=== PATIENT | male | born 1985 | race Caucasian/White ===

== ENCOUNTER 2016-08-22 18:34 | Inpatient (IN) | payer SELFPAY ==
[~2016-08-22] VITALS: Ht 175.3 cm; Wt 82.1 kg
[2016-08-22 20:04] VITALS: BP 123/79
[2016-08-22] MEDS ORDERED: ONDANSETRON PF 4 MG/2 ML VIAL. IV PRN (20:15)
[2016-08-22] MEDS: MORPHINE SULFATE 2 MG/ML DISP.SYRIN. IV PRN ×2 (20:48→23:34)
[2016-08-22] MEDS: IV RINGERS,LACTATED 1000ML 1,000 ML IV SCH (20:49)
[2016-08-22 23:26] VITALS: BP 109/68
[2016-08-22] MEDS: PIPERACILLIN/TAZOBACTAM 3.375 GM in IV NORMAL SALINE 50ML 50 ML IV SCH (23:34)
[2016-08-23] VITALS (13 sets, daily range): BP systolic 99–126; BP diastolic 53–94
[2016-08-23] MEDS: MORPHINE SULFATE 2 MG/ML DISP.SYRIN. IV PRN ×4 (02:06→09:46)
[2016-08-23] MEDS: IV RINGERS,LACTATED 1000ML 1,000 ML IV SCH ×4 (05:58→23:11)
[2016-08-23] MEDS: PIPERACILLIN/TAZOBACTAM 3.375 GM in IV NORMAL SALINE 50ML 50 ML IV SCH ×3 (05:59→18:32)
[2016-08-23 07:22] LABS: BASO % 0 % (0-3); EOS % 0 % (0-3); HEMATOCRIT 41.9 % (39.0-53.0); HEMOGLOBIN 14.4 g/dL (13.0-17.5); LYMPH # 0.9 x10^3/uL (1.0-4.8); LYMPH % 7 % (24-48); MEAN CORPUSCULAR HEMOGLOBIN 31 pg (25-35); MEAN CORPUSCULAR HGB CONC 34 g/dL (31-37); MEAN CORPUSCULAR VOLUME 90 fL (79-100); MONO % 7 % (0-9); NEUT % 86 % (31-73); PLATELET COUNT 171 x10^3/uL (140-400); RED BLOOD COUNT 4.67 x10^6/uL (4.30-5.70); RED CELL DISTRIBUTION WIDTH 13.9 % (11.5-14.5); WHITE BLOOD COUNT 13.3 x10^3/uL (4.0-11.0)
--- NOTE | 2016-08-23 08:50 | PDOC1 ---
History and Physical Date of Admission Date of Admission DATE: 08/22/16 Identification/Chief Complaint Chief Complaint Abdominal pain Problems: (1) Perforated appendicitis Source Source: Patient History of Present Illness History of Present Illness 31 yo M with c/o epigastric pain beginning on 08/19, mild. Described as indigestion. However, progressed to diffuse abd pain. Developed some relief on 08/21, but then worsened to diffuse abd pain. No F/C, no bowel changes. Positive anorexia. No previous episodes. Accompanied by supportive . Past Medical History Cardiovascular: No pertinent hx Past Surgical History Past Surgical History: Other (none) Family History Family History: Other (denies inheritable disease) Social History Smoke: 1 pack per day (encouraged smoking cessation) ALCOHOL: occassional (encourage min consumption) Current Problem List Problems: (1) Perforated appendicitis Current Medications Current Medications Current Medications Ringer's Solution 1,000 ml @ 100 mls/hr Q10H IV Last administered on 08/23/16 05:58; Start 08/22/16 at 20:09 Ondansetron HCl (Zofran) 4 mg PRN Q6HRS PRN IV NAUSEA/VOMITING; Start 08/22/16 at 20:15 Morphine Sulfate 1 mg PRN Q1HR PRN IV PAIN Last administered on 08/22/16 23:34 ; Start 08/22/16 at 20:15 Piperacillin Sod/ Tazobactam Sod 3.375 gm/Sodium Chloride 50 ml @ 100 mls/hr Q6HRS IV Last administered on 08/23/16 05:59; Start 08/23/16 at 00:00 Morphine Sulfate 2 mg PRN Q1HR PRN IV PAIN Last administered on 08/23/16 08:16 ; Start 08/22/16 at 23:45 Allergies Allergies: Coded Allergies: No Known Drug Allergies (Unverified , 08/22/16) ROS Gastrointestinal: Yes Abdominal Pain Physical Exam General: Alert, Oriented X3, Cooperative, moderate distress HEENT: Atraumatic, EOMI, Mucous membr. moist/pink Lungs: Normal air movement Abdomen: Other (diffuse TTP with involuntary guarding, no masses, no hernias) Rectal Exam: not examined Extremities: No clubbing, No cyanosis, No edema Skin: No rashes, No breakdown, Other (diffuse tattooing) Psych/Mental Status: Mental status NL, Mood NL Vitals Vitals Vital Signs Date Time Temp Pulse Resp B/P (MAP) Pulse Ox O2 Delivery O2 Flow Rate FiO2 08/23/16 08:16 Room Air 08/23/16 07:00 97.7 82 20 102/65 (77) 95 97.7 Labs Labs Laboratory Tests Test 08/23/16 06:45 White Blood Count 13.3 x10^3/uL (4.0-11.0) Red Blood Count 4.67 x10^6/uL (4.30-5.70) Hemoglobin 14.4 g/dL (13.0-17.5) Hematocrit 41.9 % (39.0-53.0) Mean Corpuscular Volume 90 fL (79-100) Mean Corpuscular Hemoglobin 31 pg (25-35) Mean Corpuscular Hemoglobin Concent 34 g/dL (31-37) Red Cell Distribution Width 13.9 % (11.5-14.5) Platelet Count 171 x10^3/uL (140-400) Neutrophils (%) (Auto) 86 % (31-73) Lymphocytes (%) (Auto) 7 % (24-48) Monocytes (%) (Auto) 7 % (0-9) Eosinophils (%) (Auto) 0 % (0-3) Basophils (%) (Auto) 0 % (0-3) Neutrophils # (Auto) 11.4 x10^3uL (1.8-7.7) Lymphocytes # (Auto) 0.9 x10^3/uL (1.0-4.8) Monocytes # (Auto) 0.9 x10^3/uL (0.0-1.1) Eosinophils # (Auto) 0.0 x10^3/uL (0.0-0.7) Basophils # (Auto) 0.0 x10^3/uL (0.0-0.2) Laboratory Tests Test 08/23/16 06:45 White Blood Count 13.3 x10^3/uL (4.0-11.0) Red Blood Count 4.67 x10^6/uL (4.30-5.70) Hemoglobin 14.4 g/dL (13.0-17.5) Hematocrit 41.9 % (39.0-53.0) Mean Corpuscular Volume 90 fL (79-100) Mean Corpuscular Hemoglobin 31 pg (25-35) Mean Corpuscular Hemoglobin Concent 34 g/dL (31-37) Red Cell Distribution Width 13.9 % (11.5-14.5) Platelet Count 171 x10^3/uL (140-400) Neutrophils (%) (Auto) 86 % (31-73) Lymphocytes (%) (Auto) 7 % (24-48) Monocytes (%) (Auto) 7 % (0-9) Eosinophils (%) (Auto) 0 % (0-3) Basophils (%) (Auto) 0 % (0-3) Neutrophils # (Auto) 11.4 x10^3uL (1.8-7.7) Lymphocytes # (Auto) 0.9 x10^3/uL (1.0-4.8) Monocytes # (Auto) 0.9 x10^3/uL (0.0-1.1) Eosinophils # (Auto) 0.0 x10^3/uL (0.0-0.7) Basophils # (Auto) 0.0 x10^3/uL (0.0-0.2) Images Images CT at [facility] [place] c/w perforated appendicitis VTE Prophylaxis Ordered VTE Prophylaxis Devices: Yes VTE Pharmacological Prophylaxi: No Assessment/Plan Assessment/Plan perforated appendicitis IV abx started some clinical improvement, but persistent diffuse pain. WBC elevated. Given persistent pain, favor proceeding with laparoscopic versus open appendectomy. R/B/A d/w pt and pt's . Significant risk of perioperative complication/infection given perforation They appear to understand and agree to proceed. DOTTIE BELL MD Aug 23, 2016 08:50
[2016-08-23 09:41] LABS: % EOS 1 % (0-5); PLT ESTIMATE ADEQUATE (ADEQUATE)
[2016-08-23] MEDS ORDERED: SEVOFLURANE 31 TO 60 MINUTES. IH ONE (10:15)
[2016-08-23] MEDS ORDERED: SUCCINYLCHOLINE 200 MG/10 ML VIAL. ONE (10:16)
[2016-08-23] MEDS ORDERED: fentaNYL PF VIAL 100 MCG/2 ML VIAL ONE ×3 (10:16→12:24)
[2016-08-23] MEDS ORDERED: GLYCOPYRROLATE 1 MG/5 ML VIAL. ONE (10:16)
[2016-08-23] MEDS ORDERED: NEOSTIGMINE METHYLSULFATE 5 MG/5 ML SYRINGE. ONE (10:16)
[2016-08-23] MEDS ORDERED: MIDAZOLAM HCL/PF 2 MG/2 ML VIAL. ONE (10:16)
[2016-08-23] MEDS ORDERED: ROCURONIUM 50 MG/5 ML VIAL. ONE (10:17)
[2016-08-23] MEDS ORDERED: LIDOCAINE 2% PF Vial for OR 5 ML VIAL. ONE (10:18)
[2016-08-23] MEDS ORDERED: DEXAMETHASONE SOD PHOS 20 MG/5 ML VIAL. ONE (10:18)
[2016-08-23] MEDS ORDERED: ONDANSETRON PF 4 MG/2 ML VIAL. ONE (10:18)
[2016-08-23] MEDS ORDERED: PROPOFOL 20 ML IV ONE (10:18)
[2016-08-23] MEDS ORDERED: BUPIVACAINE-EPI 0.5%-1:200000 50 ML VIAL. ONE (10:23)
[2016-08-23] MEDS ORDERED: fentaNYL PF VIAL 100 MCG/2 ML VIAL IV ONE (11:15)
[2016-08-23] MEDS ORDERED: PROCHLORPERAZINE 10 MG/2 ML VIAL. ONE (12:51)
[2016-08-23] MEDS ORDERED: IV RINGERS,LACTATED 1000ML 1,000 ML IV SCH (12:57)
[2016-08-23] MEDS ORDERED: fentaNYL PF VIAL 100 MCG/2 ML VIAL IV PRN (13:00)
[2016-08-23] MEDS ORDERED: PROCHLORPERAZINE 10 MG/2 ML VIAL. IV PRN (13:00)
[2016-08-23] MEDS ORDERED: LIDOCAINE 1% 1 ML SYRINGE. ID PRN (13:00)
[2016-08-23] MEDS ORDERED: HYDROmorphone 2 MG/ML VIAL IV PRN (13:00)
[2016-08-23] MEDS ORDERED: 0.9 % SODIUM CHLORIDE 10 ML DISP.SYRIN. IV PRN (13:00)
[2016-08-23] MEDS ORDERED: ONDANSETRON PF 4 MG/2 ML VIAL. IV PRN (13:00)
[2016-08-23] MEDS ORDERED: MORPHINE SULFATE 2 MG/ML DISP.SYRIN. IV PRN ×2 (13:00)
[2016-08-23] MEDS ORDERED: KETOROLAC TROMETHAMINE 30 MG/ML INJ. ONE (13:04)
[2016-08-23] MEDS: KETOROLAC TROMETHAMINE 30 MG/ML INJ. IV PRN (13:07)
--- NOTE | 2016-08-23 13:10 | PDOC ---
BRIEF OPERATIVE NOTE Pre-Op Diagnosis Perforated appendicitis Post-Op Diagnosis same Procedure Performed Laparoscopic appendectomy Surgeon Laci Bell Anesthesia Type: General, Local Blood Loss 20 Specimens Obtained appendix Findings diffuse peritonitis, indurated, appendix, perforated, infected Complications none Additional Remarks After obtaining informed consent, patient was taken to the OR and induced under GETA. Patient was prepped and draped in the usual fashion over the abdomen. 0.5% Marcaine was injected in the left abdomen. 15 blade scapel was used to make and incision. 5 mm non bladed trocar was introduced under laparoscopic guidance. Pneumoperitoneum was thus established. Additional 12 port was placed suprumbelical, and another 5 port was placed suprapubic. The abdominal cavity was explored. There was diffuse peritonitis and purulent ascites, c/w perforation. There was no obvious feculent peritonitis. The appendix was identified coming off the confluence of the teania at the base of the cecum. A defect was created at the mesoappendix and a general DEDE was taken across the base of the appendix and a vascular load was taken across the mesoappendix. Additional hemostasis was obtained on the mesoappendix using clips. The appendix had been bluntly dissected off the surrounding viscera. It was placed in a an Endocatch bag and brought out and sent to pathology. The abdominal cavity was copiously irrigated with 5 liters of fluid. The was no evidence of pathology at the time of closure. All ports were removed under laparoscopic guidance. There was no evidence of bleeding. The fascia defect at the umbelicus was reapproximated with 0 vicryl stitch and all skin incisions were reapproximated with 4-0 monocryl. Sterile dressings were placed over all wounds. Patient tolerated procedure well and sent to PACU in a stable condition. All counts were correct. There were no immediate complications. Wound class is 4 (infected/dirty). LACI BELL MD Aug 23, 2016 13:10
[2016-08-23] MEDS: fentaNYL PF VIAL 100 MCG/2 ML VIAL IV PRN ×2 (13:12→13:49)
[2016-08-23] MEDS: DOCUSATE SODIUM 100 MG CAPSULE. PO SCH ×2 (13:30→22:23)
[2016-08-23 14:35] LABS: ALBUMIN 3.4 g/dL (3.4-5.0); ALBUMIN/GLOBULIN RATIO 1.3 (1.0-1.7); CALCIUM 8.6 mg/dL (8.5-10.1); CREATININE 0.9 mg/dL (0.7-1.3); GFR 97.2; TOTAL BILIRUBIN 3.2 mg/dL (0.2-1.0); TOTAL PROTEIN 6.1 g/dL (6.4-8.2)
[2016-08-23] MEDS ORDERED: PANTOPRAZOLE 40 MG TABLET.DR. PO ONE (23:00)
[2016-08-23] MEDS: HYDROcodone/APAP 5/325MG 1 TAB TABLET PO PRN (23:02)
[2016-08-24] MEDS: PIPERACILLIN/TAZOBACTAM 3.375 GM in IV NORMAL SALINE 50ML 50 ML IV SCH ×4 (00:27→18:39)
[2016-08-24 03:00] VITALS: BP 111/80
[2016-08-24] MEDS: IV RINGERS,LACTATED 1000ML 1,000 ML IV SCH ×4 (03:05→22:01)
--- NOTE | 2016-08-24 03:48 | ACF ---
Admission Forms Criteria ABDOMINAL PAIN Clinical Indications for Admission to Inpatient Care (Place 'X' for any and all applicable criteria): Admission is indicated for ANY ONE of the following(1)(2)(3)(4)(5): [ x]I. Inpatient admission required rather than observation care (Also use Abdominal Pain: Observation Care, as appropriate) because of ANY ONE of the following: [x ]a) Severe pain requiring acute inpatient management [ ]b) Identification of etiology/finding that requires inpatient care (eg, aortic dissection, free air) [ ]c) Absent bowel sounds with complete ileus(6) [ ]d) Suspected toxic megacolon [ ]e) Severe electrolyte abnormalities requiring inpatient care [ ]f) High fever or infection requiring inpatient admission as indicated by ANY ONE of following(7)(8): [ ] i) Appropriate outpatient or observational care antimicrobial treatment unavailable, not effective, or not feasible [ ] ii) Documented bacteremia [ ] iii) Temperature > 104.9 degrees F (oral) [ ] iv) T >103.1 F (oral) or < 96.8 F(rectal) that does not respond to all emergency treatment measures [ ]g) Signs of intestinal obstruction [B] [ ]h) Hemodynamic instability [ ]i) IV fluid to replace significant ongoing losses (greater than 3 L/m2 per day) (12)(13) [ ]j) Percutaneous or open drainage (eg, abscess, biliary tract ) procedures [ ]k) Parenteral nutrition regimen that must be implemented on inpatient basis [ ]l) Other condition,treatment or monitoring requiring inpatient admission. [x ]II. Peritoneal signs present [X]III. Surgery needed that cannot be performed on an ambulatory basis. [ ]IV. Evaluation requires patient to not eat or drink for extended period ( eg, more than 24 hours). [ ]V. Contraindications and/or Inappropriate clinical situations for Observational Care in patients with abdominal pain, when ANY ONE of the following is required: [ ]a) Thorough evaluation is required to prevent catastrophic events due to delays in diagnosing (e.g.Mesenteric ischemia) 1,3 [ ]b) Patient with severe pathology or with chronic symptoms unlikely to improve in the ED stay (3) [ ]. General contraindications and/or Inappropriate clinical situations for Observational Care in patients with abdominal pain, when ANY ONE of the following is required: [ ]a) Prediction of prolongation of LOS based on ANY ONE of the following may be considered as a contraindication for observational care 2, 3, 4, 5, 6, 7, 8, 9, 10, 11 [ ]i) Age > 65 yrs. [ ]ii) Patient arriving by ambulance [ ]iii) Patient with high acuity [ ]iv) Patient requiring vital sign monitoring [ ]v) Patient on IV medication [ ]b) Systolic blood pressures 180mmHg 3,12 [ ]c) Patient with altered mental status including delirium and other alteration of consciousness, (3) [ ]d) Patient whose discharge disposition will be to a long-term home or rehabilitation home should not be managed in Emergency Department Observation Unit. CMS rule requires 3 days hospital stay before such placement.3,13 [ ]e) Patient with failure to thrive due to broad array of etiologies 3,16,17 [ ]f) Inability to ambulate 3,14 Extended stay beyond goal length of stay may be needed for(2)(3): [x ]a) Persistent abdominal pain with suspected intra-abdominal process [ ]b) Diagnosed condition requiring continued stay (e.g., pancreatitis, complicated diverticulitis) [ ]c) Surgery (e.g., colectomy) The original [employer] content created by [employer] has been revised. The portions of the content which have been revised are identified through the use of italic text or in bold, and [facility] has neither reviewed nor approved the modified material.All other unmodified content is copyright [employer] [facility]. Please see references footnoted in the original [employer] [facility] edition 2016 Admission Criteria Met?: Yes ELVIRA JULIAN Aug 24, 2016 03:48 DOTTIE BELL MD Aug 24, 2016 06:35
[2016-08-24 04:34] LABS: BASO % 0 % (0-3); EOS % 0 % (0-3); HEMATOCRIT 37.8 % (39.0-53.0); HEMOGLOBIN 12.8 g/dL (13.0-17.5); LYMPH # 0.6 x10^3/uL (1.0-4.8); LYMPH % 5 % (24-48); MEAN CORPUSCULAR HEMOGLOBIN 30 pg (25-35); MEAN CORPUSCULAR HGB CONC 34 g/dL (31-37); MEAN CORPUSCULAR VOLUME 90 fL (79-100); MONO % 7 % (0-9); NEUT % 88 % (31-73); PLATELET COUNT 167 x10^3/uL (140-400); RED BLOOD COUNT 4.19 x10^6/uL (4.30-5.70); WHITE BLOOD COUNT 13.6 x10^3/uL (4.0-11.0)
[2016-08-24 05:18] LABS: CALCIUM 8.8 mg/dL (8.5-10.1); CREATININE 0.9 mg/dL (0.7-1.3); GFR 97.2; POTASSIUM 3.9 mmol/L (3.5-5.1)
[2016-08-24] MEDS: MORPHINE SULFATE 2 MG/ML DISP.SYRIN. IV PRN ×3 (05:38→12:37)
[2016-08-24] MEDS ORDERED: PANTOPRAZOLE 40 MG TABLET.DR. PO SCH (06:30)
[2016-08-24 07:00] VITALS: BP 105/69
[2016-08-24] MEDS: DOCUSATE SODIUM 100 MG CAPSULE. PO SCH ×2 (08:25→21:00)
--- NOTE | 2016-08-24 08:25 | PDOC ---
SURGICAL PROGRESS NOTE Subjective Pt with c/o N/V yesterday and this AM, pain much improved, no flatus Vital Signs Vital Signs Date Time Temp Pulse Resp B/P (MAP) Pulse Ox O2 Delivery O2 Flow Rate FiO2 08/24/16 07:15 Room Air 08/24/16 07:00 98.4 73 18 105/69 (81) 96 98.4 08/23/16 18:00 2.0 I&O Intake and Output 08/24/16 07:00 Intake Total 2399 ml Output Total 95 ml Balance 2304 ml IV Total 2399 ml Output Urine Total 85 ml Estimated Blood Loss 10 ml # Voids 5 General: Alert, Oriented X3, Cooperative, mild distress Abdomen: Soft, Other (distended, mild TTP, dressing c/d/i) Labs Laboratory Tests Test 08/23/16 06:45 08/24/16 04:20 White Blood Count 13.3 x10^3/uL (4.0-11.0) 13.6 x10^3/uL (4.0-11.0) Red Blood Count 4.67 x10^6/uL (4.30-5.70) 4.19 x10^6/uL (4.30-5.70) Hemoglobin 14.4 g/dL (13.0-17.5) 12.8 g/dL (13.0-17.5) Hematocrit 41.9 % (39.0-53.0) 37.8 % (39.0-53.0) Mean Corpuscular Volume 90 fL (79-100) 90 fL (79-100) Mean Corpuscular Hemoglobin 31 pg (25-35) 30 pg (25-35) Mean Corpuscular Hemoglobin Concent 34 g/dL (31-37) 34 g/dL (31-37) Red Cell Distribution Width 13.9 % (11.5-14.5) 14.0 % (11.5-14.5) Platelet Count 171 x10^3/uL (140-400) 167 x10^3/uL (140-400) Neutrophils (%) (Auto) 86 % (31-73) 88 % (31-73) Lymphocytes (%) (Auto) 7 % (24-48) 5 % (24-48) Monocytes (%) (Auto) 7 % (0-9) 7 % (0-9) Eosinophils (%) (Auto) 0 % (0-3) 0 % (0-3) Basophils (%) (Auto) 0 % (0-3) 0 % (0-3) Neutrophils # (Auto) 11.4 x10^3uL (1.8-7.7) 12.0 x10^3uL (1.8-7.7) Lymphocytes # (Auto) 0.9 x10^3/uL (1.0-4.8) 0.6 x10^3/uL (1.0-4.8) Monocytes # (Auto) 0.9 x10^3/uL (0.0-1.1) 0.9 x10^3/uL (0.0-1.1) Eosinophils # (Auto) 0.0 x10^3/uL (0.0-0.7) 0.0 x10^3/uL (0.0-0.7) Basophils # (Auto) 0.0 x10^3/uL (0.0-0.2) 0.0 x10^3/uL (0.0-0.2) Segmented Neutrophils % 83 % (35-66) Band Neutrophils % 1 % (0-9) Lymphocytes % 12 % (24-48) Monocytes % 3 % (0-10) Eosinophils % 1 % (0-5) Platelet Estimate Adequate (ADEQUATE) Sodium Level 142 mmol/L (136-145) 137 mmol/L (136-145) Potassium Level 4.0 mmol/L (3.5-5.1) 3.9 mmol/L (3.5-5.1) Chloride Level 104 mmol/L (98-107) 101 mmol/L (98-107) Carbon Dioxide Level 25 mmol/L (21-32) 27 mmol/L (21-32) Anion Gap 13 (6-14) 9 (6-14) Blood Urea Nitrogen 15 mg/dL (8-26) 19 mg/dL (8-26) Creatinine 0.9 mg/dL (0.7-1.3) 0.9 mg/dL (0.7-1.3) Estimated GFR (Cockcroft-Gault) 97.2 97.2 BUN/Creatinine Ratio 17 (6-20) Glucose Level 100 mg/dL (70-99) 128 mg/dL (70-99) Calcium Level 8.6 mg/dL (8.5-10.1) 8.8 mg/dL (8.5-10.1) Total Bilirubin 3.2 mg/dL (0.2-1.0) Aspartate Amino Transf (AST/SGOT) 12 U/L (15-37) Alanine Aminotransferase (ALT/SGPT) 16 U/L (16-63) Alkaline Phosphatase 52 U/L (46-116) Total Protein 6.1 g/dL (6.4-8.2) Albumin 3.4 g/dL (3.4-5.0) Albumin/Globulin Ratio 1.3 (1.0-1.7) Laboratory Tests Test 08/24/16 04:20 White Blood Count 13.6 x10^3/uL (4.0-11.0) Red Blood Count 4.19 x10^6/uL (4.30-5.70) Hemoglobin 12.8 g/dL (13.0-17.5) Hematocrit 37.8 % (39.0-53.0) Mean Corpuscular Volume 90 fL (79-100) Mean Corpuscular Hemoglobin 30 pg (25-35) Mean Corpuscular Hemoglobin Concent 34 g/dL (31-37) Red Cell Distribution Width 14.0 % (11.5-14.5) Platelet Count 167 x10^3/uL (140-400) Neutrophils (%) (Auto) 88 % (31-73) Lymphocytes (%) (Auto) 5 % (24-48) Monocytes (%) (Auto) 7 % (0-9) Eosinophils (%) (Auto) 0 % (0-3) Basophils (%) (Auto) 0 % (0-3) Neutrophils # (Auto) 12.0 x10^3uL (1.8-7.7) Lymphocytes # (Auto) 0.6 x10^3/uL (1.0-4.8) Monocytes # (Auto) 0.9 x10^3/uL (0.0-1.1) Eosinophils # (Auto) 0.0 x10^3/uL (0.0-0.7) Basophils # (Auto) 0.0 x10^3/uL (0.0-0.2) Sodium Level 137 mmol/L (136-145) Potassium Level 3.9 mmol/L (3.5-5.1) Chloride Level 101 mmol/L (98-107) Carbon Dioxide Level 27 mmol/L (21-32) Anion Gap 9 (6-14) Blood Urea Nitrogen 19 mg/dL (8-26) Creatinine 0.9 mg/dL (0.7-1.3) Estimated GFR (Cockcroft-Gault) 97.2 Glucose Level 128 mg/dL (70-99) Calcium Level 8.8 mg/dL (8.5-10.1) Assessment/Plan s/p lap appendectomy cont abx for extensive perforated appendicitis high suspicion for development of abscess, will tentatively plan CT POD #3, if pt not improved by then check labs in AM Problems: DOTTIE BELL MD Aug 24, 2016 08:25
[2016-08-24] MEDS: HYDROcodone/APAP 5/325MG 1 TAB TABLET PO PRN (08:27)
[2016-08-24] MEDS: ONDANSETRON PF 4 MG/2 ML VIAL. IV PRN (10:22)
[2016-08-24 11:16] VITALS: BP 119/85
[2016-08-24] MEDS: METOCLOPRAMIDE HCL 10 MG/2 ML VIAL. IV PRN (12:37)
[2016-08-24 15:40] VITALS: BP 118/80
[2016-08-24] MEDS: KETOROLAC TROMETHAMINE 30 MG/ML INJ. IV PRN ×2 (16:10→19:35)
[2016-08-24 19:25] VITALS: BP 112/74
[2016-08-24 23:12] VITALS: BP 114/73
[2016-08-25] MEDS: MORPHINE SULFATE 2 MG/ML DISP.SYRIN. IV PRN (00:53)
[2016-08-25] MEDS: PIPERACILLIN/TAZOBACTAM 3.375 GM in IV NORMAL SALINE 50ML 50 ML IV SCH ×4 (00:57→17:24)
[2016-08-25] MEDS: ONDANSETRON PF 4 MG/2 ML VIAL. IV PRN ×2 (01:16→10:56)
[2016-08-25 02:57] VITALS: BP 119/74
[2016-08-25] MEDS: KETOROLAC TROMETHAMINE 30 MG/ML INJ. IV PRN ×3 (05:17→17:22)
[2016-08-25] MEDS: METOCLOPRAMIDE HCL 10 MG/2 ML VIAL. IV PRN ×3 (05:17→17:23)
[2016-08-25] MEDS: PANTOPRAZOLE 40 MG TABLET.DR. PO SCH ×2 (06:30→07:30)
[2016-08-25 07:00] VITALS: BP 122/82
[2016-08-25] MEDS ORDERED: PANTOPRAZOLE 40 MG TABLET.DR. PO SCH (07:30)
--- NOTE | 2016-08-25 08:25 | PDOC ---
SURGICAL PROGRESS NOTE Subjective Pt feels much better today, less n/V, passing flatus, Vital Signs Vital Signs Date Time Temp Pulse Resp B/P (MAP) Pulse Ox O2 Delivery O2 Flow Rate FiO2 08/25/16 02:57 98.3 71 18 119/74 (89) 93 Room Air 98.3 I&O Intake and Output 08/25/16 07:00 Intake Total 50 ml Output Total 285 ml Balance -235 ml Intake Oral 0 ml IV Total 50 ml Gastric Drainage Total 25 ml Emesis 230 ml Drainage Total 30 ml # Voids 3 General: Alert, Oriented X3, Cooperative, No acute distress Abdomen: Soft, No tenderness, Other (mild distention, dressing c/d/i) Labs Laboratory Tests Test 08/24/16 04:20 White Blood Count 13.6 x10^3/uL (4.0-11.0) Red Blood Count 4.19 x10^6/uL (4.30-5.70) Hemoglobin 12.8 g/dL (13.0-17.5) Hematocrit 37.8 % (39.0-53.0) Mean Corpuscular Volume 90 fL (79-100) Mean Corpuscular Hemoglobin 30 pg (25-35) Mean Corpuscular Hemoglobin Concent 34 g/dL (31-37) Red Cell Distribution Width 14.0 % (11.5-14.5) Platelet Count 167 x10^3/uL (140-400) Neutrophils (%) (Auto) 88 % (31-73) Lymphocytes (%) (Auto) 5 % (24-48) Monocytes (%) (Auto) 7 % (0-9) Eosinophils (%) (Auto) 0 % (0-3) Basophils (%) (Auto) 0 % (0-3) Neutrophils # (Auto) 12.0 x10^3uL (1.8-7.7) Lymphocytes # (Auto) 0.6 x10^3/uL (1.0-4.8) Monocytes # (Auto) 0.9 x10^3/uL (0.0-1.1) Eosinophils # (Auto) 0.0 x10^3/uL (0.0-0.7) Basophils # (Auto) 0.0 x10^3/uL (0.0-0.2) Sodium Level 137 mmol/L (136-145) Potassium Level 3.9 mmol/L (3.5-5.1) Chloride Level 101 mmol/L (98-107) Carbon Dioxide Level 27 mmol/L (21-32) Anion Gap 9 (6-14) Blood Urea Nitrogen 19 mg/dL (8-26) Creatinine 0.9 mg/dL (0.7-1.3) Estimated GFR (Cockcroft-Gault) 97.2 Glucose Level 128 mg/dL (70-99) Calcium Level 8.8 mg/dL (8.5-10.1) Problem List s/p lap appendectomy improved try clears encourage OOB encourage smoking cessation d/w pt's mother check CBC in AM, consider CT avoid morphine, may be trigger for n/V Problems: DOTTIE BELL MD Aug 25, 2016 08:25
[2016-08-25 08:35] LABS: BASO % 0 % (0-3); EOS % 0 % (0-3); HEMOGLOBIN 12.8 g/dL (13.0-17.5); LYMPH # 0.5 x10^3/uL (1.0-4.8); LYMPH % 5 % (24-48); MEAN CORPUSCULAR HEMOGLOBIN 31 pg (25-35); MEAN CORPUSCULAR HGB CONC 35 g/dL (31-37); MEAN CORPUSCULAR VOLUME 89 fL (79-100); MONO % 7 % (0-9); NEUT % 88 % (31-73); PLATELET COUNT 193 x10^3/uL (140-400); RED BLOOD COUNT 4.16 x10^6/uL (4.30-5.70); RED CELL DISTRIBUTION WIDTH 13.8 % (11.5-14.5); WHITE BLOOD COUNT 11.5 x10^3/uL (4.0-11.0)
[2016-08-25 08:52] LABS: ALBUMIN 2.9 g/dL (3.4-5.0); ALBUMIN/GLOBULIN RATIO 0.8 (1.0-1.7); CALCIUM 8.4 mg/dL (8.5-10.1); GFR 86.1; POTASSIUM 3.8 mmol/L (3.5-5.1); TOTAL BILIRUBIN 2.3 mg/dL (0.2-1.0); TOTAL PROTEIN 6.5 g/dL (6.4-8.2)
[2016-08-25] MEDS: DOCUSATE SODIUM 100 MG CAPSULE. PO SCH ×2 (09:00→21:00)
[2016-08-25 11:00] VITALS: BP 133/77
[2016-08-25] MEDS: IV RINGERS,LACTATED 1000ML 1,000 ML IV SCH ×2 (11:50→23:16)
[2016-08-25] MEDS: PROCHLORPERAZINE 10 MG/2 ML VIAL. IV PRN (11:54)
[2016-08-25] MEDS: FAMOTIDINE 20 MG/2 ML VIAL IVP SCH ×2 (13:55→23:16)
[2016-08-25] MEDS: fentaNYL PF VIAL 100 MCG/2 ML VIAL IV PRN ×3 (13:55→19:59)
[2016-08-25] MEDS ORDERED: CONTRAST GIVEN MC PRN (14:30)
[2016-08-25] MEDS ORDERED: IOHEXOL 300 MG/ML 75 ML VIAL IV ONE (14:30)
[2016-08-25 15:24] VITALS: BP 128/84
--- NOTE | 2016-08-25 15:28 | RAD ---
CT of the abdomen and pelvis with contrast, 08/25/2016: History: Nausea and vomiting Multidetector CT imaging was performed following an IV bolus injection of iodinated contrast material. No oral contrast material was administered for this exam. There is a small amount of bilateral pleural fluid. There is moderate underlying atelectasis/infiltrate posteriorly in both lower lobes. A component of pneumonia cannot be excluded. The liver is unremarkable. No gallbladder abnormality is seen. The pancreas shows no abnormality. The spleen is of normal size. The kidneys are unremarkable. The stomach is distended with fluid and gas. The duodenum and small bowel are both moderately distended with fluid and gas. No nondilated small bowel is seen. The colon is not dilated. It contains a small amount of gas and scattered collections of stool. The pattern suggests small bowel obstruction near the ileocecal level. There is only a small amount of free fluid in the pelvis. Mild streaky subcutaneous gas collections are present anteriorly on the left. These are likely on a postsurgical basis. IMPRESSION: 1. Moderate distention of the stomach and the entire small bowel suggesting small bowel obstruction near the ileocecal level versus a severe small bowel ileus. 2. Small bilateral pleural effusions with moderate bibasilar atelectasis/infiltrate. 3. Small amount of subcutaneous gas in the anterior abdominal wall on the left, likely on a postsurgical basis. PQRS Compliance Statement: One or more of the following individualized dose reduction techniques were utilized for this examination: 1. Automated exposure control 2. Adjustment of the mA and/or kV according to patient size 3. Use of iterative reconstruction technique
--- NOTE | 2016-08-25 18:08 | RAD ---
Indication: NG tube placement. Time of exam 5:54 PM NG tube passes below the diaphragm but is coiled upon itself and directed retrograde just beyond the GE junction. This should be advanced. There is significant gaseous distention of bowel loops throughout the upper abdomen. IMPRESSION: NG tube, as described. This should be advanced and repeat study can be performed. Electronically signed by: Laci Tan MD (08/25/2016 6:05 PM) [facility]
[2016-08-25 19:20] VITALS: BP 118/81
--- NOTE | 2016-08-25 20:34 | RAD ---
Indication: NG tube repositioned. Time of exam 8:21 PM Correlation is made with prior study from earlier the same evening. The NG tube has been advanced. The NG tube is no longer coiled upon itself. The NG tube is directed towards the left located in the gastric body. Significant gaseous distention of small bowel loops in the abdomen are noted. IMPRESSION: Satisfactory repositioning of the nasogastric tube. Electronically signed by: Laci Tan MD (08/25/2016 8:29 PM) [facility]
[2016-08-25 23:15] VITALS: BP 119/75
[2016-08-26] MEDS: PIPERACILLIN/TAZOBACTAM 3.375 GM in IV NORMAL SALINE 50ML 50 ML IV SCH ×4 (00:33→17:43)
[2016-08-26] MEDS: fentaNYL PF VIAL 100 MCG/2 ML VIAL IV PRN ×3 (00:38→17:50)
[2016-08-26 03:02] VITALS: BP 81/58
[2016-08-26] MEDS ORDERED: PHENOL ORAL SPRAY 177ML BOTTLE. PO PRN (03:15)
[2016-08-26 05:05] LABS: BASO % 0 % (0-3); EOS % 1 % (0-3); HEMATOCRIT 35.3 % (39.0-53.0); LYMPH # 0.8 x10^3/uL (1.0-4.8); LYMPH % 10 % (24-48); MEAN CORPUSCULAR HEMOGLOBIN 31 pg (25-35); MEAN CORPUSCULAR HGB CONC 34 g/dL (31-37); MEAN CORPUSCULAR VOLUME 91 fL (79-100); MONO % 11 % (0-9); NEUT % 79 % (31-73); PLATELET COUNT 176 x10^3/uL (140-400); RED BLOOD COUNT 3.89 x10^6/uL (4.30-5.70); WHITE BLOOD COUNT 7.8 x10^3/uL (4.0-11.0)
[2016-08-26 07:00] VITALS: BP 121/60
[2016-08-26] MEDS: DOCUSATE SODIUM 100 MG CAPSULE. PO SCH ×2 (07:54→21:00)
[2016-08-26] MEDS: FAMOTIDINE 20 MG/2 ML VIAL IVP SCH ×2 (08:41→22:03)
[2016-08-26 11:00] VITALS: BP 126/72
--- NOTE | 2016-08-26 11:03 | PDOC ---
SURGICAL PROGRESS NOTE Subjective Pt feels better, no N/V since NGT placed, passing flatus and stool, thirsty Vital Signs Vital Signs Date Time Temp Pulse Resp B/P (MAP) Pulse Ox O2 Delivery O2 Flow Rate FiO2 08/26/16 07:00 98.6 80 16 121/60 (80) 95 Room Air 98.6 08/25/16 20:00 2.0 I&O Intake and Output 08/26/16 06:59 Intake Total 1250 ml Output Total 450 ml Balance 800 ml IV Total 1250 ml Output Urine Total 0 ml Emesis 450 ml # Voids 6 General: Alert, Oriented X3, Cooperative, No acute distress Abdomen: Soft, No tenderness Labs Laboratory Tests Test 08/25/16 08:27 08/26/16 04:40 White Blood Count 11.5 x10^3/uL (4.0-11.0) 7.8 x10^3/uL (4.0-11.0) Red Blood Count 4.16 x10^6/uL (4.30-5.70) 3.89 x10^6/uL (4.30-5.70) Hemoglobin 12.8 g/dL (13.0-17.5) 12.0 g/dL (13.0-17.5) Hematocrit 37.0 % (39.0-53.0) 35.3 % (39.0-53.0) Mean Corpuscular Volume 89 fL (79-100) 91 fL (79-100) Mean Corpuscular Hemoglobin 31 pg (25-35) 31 pg (25-35) Mean Corpuscular Hemoglobin Concent 35 g/dL (31-37) 34 g/dL (31-37) Red Cell Distribution Width 13.8 % (11.5-14.5) 14.0 % (11.5-14.5) Platelet Count 193 x10^3/uL (140-400) 176 x10^3/uL (140-400) Neutrophils (%) (Auto) 88 % (31-73) 79 % (31-73) Lymphocytes (%) (Auto) 5 % (24-48) 10 % (24-48) Monocytes (%) (Auto) 7 % (0-9) 11 % (0-9) Eosinophils (%) (Auto) 0 % (0-3) 1 % (0-3) Basophils (%) (Auto) 0 % (0-3) 0 % (0-3) Neutrophils # (Auto) 10.2 x10^3uL (1.8-7.7) 6.1 x10^3uL (1.8-7.7) Lymphocytes # (Auto) 0.5 x10^3/uL (1.0-4.8) 0.8 x10^3/uL (1.0-4.8) Monocytes # (Auto) 0.8 x10^3/uL (0.0-1.1) 0.9 x10^3/uL (0.0-1.1) Eosinophils # (Auto) 0.0 x10^3/uL (0.0-0.7) 0.0 x10^3/uL (0.0-0.7) Basophils # (Auto) 0.0 x10^3/uL (0.0-0.2) 0.0 x10^3/uL (0.0-0.2) Sodium Level 141 mmol/L (136-145) Potassium Level 3.8 mmol/L (3.5-5.1) Chloride Level 102 mmol/L (98-107) Carbon Dioxide Level 28 mmol/L (21-32) Anion Gap 11 (6-14) Blood Urea Nitrogen 26 mg/dL (8-26) Creatinine 1.0 mg/dL (0.7-1.3) Estimated GFR (Cockcroft-Gault) 86.1 BUN/Creatinine Ratio 26 (6-20) Glucose Level 110 mg/dL (70-99) Calcium Level 8.4 mg/dL (8.5-10.1) Total Bilirubin 2.3 mg/dL (0.2-1.0) Aspartate Amino Transf (AST/SGOT) 11 U/L (15-37) Alanine Aminotransferase (ALT/SGPT) 12 U/L (16-63) Alkaline Phosphatase 38 U/L (46-116) Total Protein 6.5 g/dL (6.4-8.2) Albumin 2.9 g/dL (3.4-5.0) Albumin/Globulin Ratio 0.8 (1.0-1.7) Laboratory Tests Test 08/26/16 04:40 White Blood Count 7.8 x10^3/uL (4.0-11.0) Red Blood Count 3.89 x10^6/uL (4.30-5.70) Hemoglobin 12.0 g/dL (13.0-17.5) Hematocrit 35.3 % (39.0-53.0) Mean Corpuscular Volume 91 fL (79-100) Mean Corpuscular Hemoglobin 31 pg (25-35) Mean Corpuscular Hemoglobin Concent 34 g/dL (31-37) Red Cell Distribution Width 14.0 % (11.5-14.5) Platelet Count 176 x10^3/uL (140-400) Neutrophils (%) (Auto) 79 % (31-73) Lymphocytes (%) (Auto) 10 % (24-48) Monocytes (%) (Auto) 11 % (0-9) Eosinophils (%) (Auto) 1 % (0-3) Basophils (%) (Auto) 0 % (0-3) Neutrophils # (Auto) 6.1 x10^3uL (1.8-7.7) Lymphocytes # (Auto) 0.8 x10^3/uL (1.0-4.8) Monocytes # (Auto) 0.9 x10^3/uL (0.0-1.1) Eosinophils # (Auto) 0.0 x10^3/uL (0.0-0.7) Basophils # (Auto) 0.0 x10^3/uL (0.0-0.2) I have reviewed the following CT with distended bowel, but no abscess Assessment/Plan perforated appendicitis appears to be improving OOB and cont NGT will recheck KUB in AM, and consider clamp NGT d/w pt and pt's family Problems: DOTTIE BELL MD Aug 26, 2016 11:03
[2016-08-26] MEDS: KETOROLAC TROMETHAMINE 30 MG/ML INJ. IV PRN ×2 (11:36→22:12)
[2016-08-26] MEDS: IV RINGERS,LACTATED 1000ML 1,000 ML IV SCH ×2 (11:41→22:03)
[2016-08-26 15:00] VITALS: BP 130/76
[2016-08-26 19:30] VITALS: BP 112/79
[2016-08-26 23:33] VITALS: BP 122/76
[2016-08-27] MEDS: PIPERACILLIN/TAZOBACTAM 3.375 GM in IV NORMAL SALINE 50ML 50 ML IV SCH ×4 (00:27→16:54)
[2016-08-27 03:21] VITALS: BP 116/75
[2016-08-27 07:00] VITALS: BP 121/86
[2016-08-27] MEDS: DOCUSATE SODIUM 100 MG CAPSULE. PO SCH ×2 (09:00→21:00)
[2016-08-27] MEDS: IV RINGERS,LACTATED 1000ML 1,000 ML IV SCH (09:24)
[2016-08-27] MEDS: FAMOTIDINE 20 MG/2 ML VIAL IVP SCH ×2 (09:25→21:19)
--- NOTE | 2016-08-27 09:28 | RAD ---
Examination: Single frontal view of the abdomen History: History of ileus Comparison: 08/25/2016 Findings: Multiple air distended dilated small bowel loops identified in the abdomen grossly similar to prior exam measuring up to 5.9 cm in transverse dimension. Impression: Multiple air distended and dilated small bowel loops identified in the abdomen throughout, unchanged.
[2016-08-27 10:58] VITALS: BP 114/74
--- NOTE | 2016-08-27 14:11 | PDOC ---
SURGICAL PROGRESS NOTE Subjective Pt feels better, denies N/V, passing flatus and stool, has been up ambulating, min pain, no F/c Vital Signs Vital Signs Date Time Temp Pulse Resp B/P (MAP) Pulse Ox O2 Delivery O2 Flow Rate FiO2 08/27/16 10:58 97.9 55 18 114/74 (87) 96 Room Air 97.9 I&O Intake and Output 08/27/16 07:00 Intake Total 1000 ml Output Total 3600 ml Balance -2600 ml Intake Oral 1000 ml Gastric Drainage Total 2400 ml Drainage Total 1200 ml # Bowel Movements 1 General: Alert, Oriented X3, Cooperative, No acute distress Abdomen: Soft, No tenderness, Other (less distended) Labs Laboratory Tests Test 08/26/16 04:40 White Blood Count 7.8 x10^3/uL (4.0-11.0) Red Blood Count 3.89 x10^6/uL (4.30-5.70) Hemoglobin 12.0 g/dL (13.0-17.5) Hematocrit 35.3 % (39.0-53.0) Mean Corpuscular Volume 91 fL (79-100) Mean Corpuscular Hemoglobin 31 pg (25-35) Mean Corpuscular Hemoglobin Concent 34 g/dL (31-37) Red Cell Distribution Width 14.0 % (11.5-14.5) Platelet Count 176 x10^3/uL (140-400) Neutrophils (%) (Auto) 79 % (31-73) Lymphocytes (%) (Auto) 10 % (24-48) Monocytes (%) (Auto) 11 % (0-9) Eosinophils (%) (Auto) 1 % (0-3) Basophils (%) (Auto) 0 % (0-3) Neutrophils # (Auto) 6.1 x10^3uL (1.8-7.7) Lymphocytes # (Auto) 0.8 x10^3/uL (1.0-4.8) Monocytes # (Auto) 0.9 x10^3/uL (0.0-1.1) Eosinophils # (Auto) 0.0 x10^3/uL (0.0-0.7) Basophils # (Auto) 0.0 x10^3/uL (0.0-0.2) Assessment/Plan perforated appendicitis KUB still with distended bowel, explained xr to pt and pt's mother will encourage OOB, clears and clamping NGT await improved bowel fxn Problems: DOTTIE BELL MD Aug 27, 2016 14:11
[2016-08-27 15:00] VITALS: BP 116/80
[2016-08-27] MEDS: AMINO AC 3%/ELECTROLYTE/GLYCER 1,000 ML IV SCH (16:51)
[2016-08-27] MEDS: KETOROLAC TROMETHAMINE 30 MG/ML INJ. IV PRN ×2 (16:54→22:57)
[2016-08-27 19:25] VITALS: BP 114/75
[2016-08-27 23:23] VITALS: BP 118/81
[2016-08-28 03:14] VITALS: BP 116/79
[2016-08-28] MEDS: PIPERACILLIN/TAZOBACTAM 3.375 GM in IV NORMAL SALINE 50ML 50 ML IV SCH ×6 (05:20→23:35)
[2016-08-28] MEDS: AMINO AC 3%/ELECTROLYTE/GLYCER 1,000 ML IV SCH ×2 (05:20→15:54)
[2016-08-28] MEDS: fentaNYL PF VIAL 100 MCG/2 ML VIAL IV PRN ×3 (06:02→20:49)
[2016-08-28 07:23] VITALS: BP 101/67
[2016-08-28] MEDS: FAMOTIDINE 20 MG/2 ML VIAL IVP SCH ×2 (08:27→20:56)
[2016-08-28] MEDS: DOCUSATE SODIUM 100 MG CAPSULE. PO SCH ×2 (08:27→20:57)
--- NOTE | 2016-08-28 09:23 | PDOC ---
SURGICAL PROGRESS NOTE Subjective drank a significant amount of water yesterday--became very bloated and uncomfortable--large NG return no flatus or stool Vital Signs Vital Signs Date Time Temp Pulse Resp B/P (MAP) Pulse Ox O2 Delivery O2 Flow Rate FiO2 08/28/16 07:23 96.8 52 18 101/67 (78) 94 Room Air 96.8 I&O Intake and Output 08/28/16 06:59 Intake Total 1090 ml Output Total 1800 ml Balance -710 ml IV Total 1090 ml Gastric Drainage Total 1800 ml # Voids 7 General: Alert, Oriented X3, Cooperative, No acute distress Abdomen: Soft, Other (mild distention, NTTP) Assessment/Plan s/p lap appy NG to LIS today, ambulate await improved bowel function Problems: JANETTE LUIS HOSE TURNER Aug 28, 2016 09:23
[2016-08-28 10:39] VITALS: BP 112/74
--- NOTE | 2016-08-28 13:44 | PATHOLOGY ---
PATHOLOGY REPORT * * * * * * * * FINAL DIAGNOSIS: Appendix, appendectomy: - Acute appendicitis with focal perforation of distal appendiceal tip. (JPM:osmin;08/28/2016) COMMENT: There is no evidence of malignancy. REPORT ELECTRONICALLY SIGNED BY: Elier Ayala M.D. DATE/TIME: 08/28/2016 13:43 * * * * * * * * GROSS PATHOLOGY: Received in formalin labeled "abena Molina," is an appendix measuring 7.1 cm in length and up to 1.3 cm in diameter with a moderate amount of attached mesoappendix. The serosal surface is pink-pizarro and slightly shaggy in appearance with a slight amount of overlying adhesions. Sectioning reveals a pinpoint to slightly patent lumen filled with fecal material. Novelty Chain Maker sections are submitted in cassette A1 and A2, with the proximal margin and bisected tip submitted in cassette A1. (CAA; 08/25/2016) INITIAL CPT CODE(S): A; 73365 Professional services performed [place] [address] Technical services performed by [facility] at [address] [place] [address] [address], [place] [address]. SPECIMEN(S) RECEIVED: A.Appendix CLINICAL HISTORY: Appendicitis PATIENT: ARIES CONNER /AGE: 608/09/1985 (Age: 31) PATIENT #: [id number] ALT CASE #: SPECIMEN COLLECTION DATE: 08/23/2016 SPECIMEN RECEIVED DATE: 08/24/2016 [facility] - [address] [place] [address] - PHONE: [phone] * * * END OF REPORT * * *
[2016-08-28 15:15] VITALS: BP 133/87
[2016-08-28 19:00] VITALS: BP 118/80
[2016-08-28 23:00] VITALS: BP 120/76
[2016-08-29] MEDS: fentaNYL PF VIAL 100 MCG/2 ML VIAL IV PRN ×4 (02:20→23:07)
[2016-08-29 03:00] VITALS: BP 113/70
[2016-08-29] MEDS: AMINO AC 3%/ELECTROLYTE/GLYCER 1,000 ML IV SCH ×2 (06:07→17:48)
[2016-08-29] MEDS: PIPERACILLIN/TAZOBACTAM 3.375 GM in IV NORMAL SALINE 50ML 50 ML IV SCH ×4 (06:08→23:58)
[2016-08-29 07:00] VITALS: BP 101/67
[2016-08-29] MEDS: DOCUSATE SODIUM 100 MG CAPSULE. PO SCH ×2 (09:11→21:00)
[2016-08-29] MEDS: FAMOTIDINE 20 MG/2 ML VIAL IVP SCH ×2 (09:14→22:22)
[2016-08-29 10:48] VITALS: BP 118/79
--- NOTE | 2016-08-29 14:09 | PDOC ---
SURGICAL PROGRESS NOTE Subjective Feeling better some flatus today ambulating Vital Signs Vital Signs Date Time Temp Pulse Resp B/P (MAP) Pulse Ox O2 Delivery O2 Flow Rate FiO2 08/29/16 13:15 Room Air 08/29/16 10:48 98.4 74 18 118/79 (92) 95 98.4 08/29/16 03:00 95.0 I&O Intake and Output 08/29/16 07:00 Intake Total 1871 ml Output Total 550 ml Balance 1321 ml Intake Oral 0 ml IV Total 990 ml Other 881 ml Drainage Total 550 ml # Voids 3 General: Alert, Oriented X3, Cooperative, No acute distress HEENT: Other (NG bilious) Abdomen: Soft, Other (ND, NTTP) Assessment/Plan s/p appy ileus, clamp NG, trial clears continue ambulating Problems: JANETTE LUIS APRN Aug 29, 2016 14:09
[2016-08-29 15:00] VITALS: BP 105/74
[2016-08-29 16:10] LABS: BILIRUBIN,URINE NEGATIVE (NEG); GLUCOSE,URINE NEGATIVE (NEG); NITRITE,URINE NEGATIVE (NEG); PH,URINE 6.5; PROTEIN,URINE NEGATIVE (NEG-TRACE); UROBILINOGEN,URINE 0.2 mg/dL (0.2 mg/dL)
[2016-08-29 16:18] LABS: BACTERIA,URINE 0 /HPF (0-FEW); RBC,URINE OCC /HPF (0-2); SQUAMOUS EPITHELIAL CELL,UR OCC /LPF
[2016-08-29 19:00] VITALS: BP 118/64
[2016-08-29 23:00] VITALS: BP 110/69
[2016-08-30 03:00] VITALS: BP 118/82
[2016-08-30] MEDS: fentaNYL PF VIAL 100 MCG/2 ML VIAL IV PRN ×7 (03:16→21:40)
[2016-08-30] MEDS: AMINO AC 3%/ELECTROLYTE/GLYCER 1,000 ML IV SCH ×3 (05:04→21:40)
[2016-08-30] MEDS: PIPERACILLIN/TAZOBACTAM 3.375 GM in IV NORMAL SALINE 50ML 50 ML IV SCH ×4 (05:56→22:40)
[2016-08-30 07:00] VITALS: BP 112/77
[2016-08-30] MEDS: DOCUSATE SODIUM 100 MG CAPSULE. PO SCH ×2 (09:00→19:45)
[2016-08-30] MEDS: FAMOTIDINE 20 MG/2 ML VIAL IVP SCH ×2 (09:23→21:39)
[2016-08-30 11:00] VITALS: BP 104/68
--- NOTE | 2016-08-30 11:56 | RAD ---
Abdominal radiograph 08/30/2016 at 0914 hours Indication: Ileus Comparison: Abdominal radiograph 08/27/2016 Technique: Single supine view of the abdomen is provided. Supine technique limits evaluation for free intraperitoneal air. Dilated loops of small bowel are identified measuring up to 6.3 cm, appearing similar way on the most recent prior examination. Distal colonic gas is not definitively seen, however new areas of gas are identified in the right colon. Rectal gas is not seen. No suspicious calcifications are identified. Surgical clips are identified in the right midabdomen. No portal venous gas is identified. No definite evidence for pneumatosis. Impression: Dilated loops of small bowel without distal colonic gas. There may be new gas within the right colon. Findings may represent ileus or small bowel obstruction. Short-term follow-up radiograph is recommended.
--- NOTE | 2016-08-30 13:46 | PDOC ---
SURGICAL PROGRESS NOTE Subjective Pt with c/o crampy abd pain, notes increased stool and flatus, no N/V Vital Signs Vital Signs Date Time Temp Pulse Resp B/P (MAP) Pulse Ox O2 Delivery O2 Flow Rate FiO2 08/30/16 13:06 97 Room Air 95.0 08/30/16 11:00 97.7 73 20 104/68 (80) 97.7 I&O Intake and Output 08/30/16 07:00 Intake Total 700 ml Output Total 1050 ml Balance -350 ml Intake Oral 700 ml Stool Total 750 ml Gastric Drainage Total 300 ml # Voids 8 # Bowel Movements 1 General: Alert, Oriented X3, Cooperative, No acute distress HEENT: Other (NGT clamped with some clear green output) Abdomen: Soft, No tenderness, Other (some distention) Labs Laboratory Tests Test 08/29/16 16:00 Urine Collection Type Unknown Urine Color Dk yellow Urine Clarity Clear Urine pH 6.5 Urine Specific [place] >=1.030 Urine Protein Negative mg/dL (NEG-TRACE) Urine Glucose (UA) Negative mg/dL (NEG) Urine Ketones (Stick) 15 mg/dL (NEG) Urine Blood Negative (NEG) Urine Nitrite Negative (NEG) Urine Bilirubin Negative (NEG) Urine Urobilinogen Dipstick 0.2 mg/dL (0.2 mg/dL) Urine Leukocyte Esterase Trace (NEG) Urine RBC Occ /HPF (0-2) Urine WBC 1-4 /HPF (0-4) Urine Squamous Epithelial Cells Occ /LPF Urine Bacteria 0 /HPF (0-FEW) Urine Mucus Slight /LPF Laboratory Tests Test 08/29/16 16:00 Urine Collection Type Unknown Urine Color Dk yellow Urine Clarity Clear Urine pH 6.5 Urine Specific [place] >=1.030 Urine Protein Negative mg/dL (NEG-TRACE) Urine Glucose (UA) Negative mg/dL (NEG) Urine Ketones (Stick) 15 mg/dL (NEG) Urine Blood Negative (NEG) Urine Nitrite Negative (NEG) Urine Bilirubin Negative (NEG) Urine Urobilinogen Dipstick 0.2 mg/dL (0.2 mg/dL) Urine Leukocyte Esterase Trace (NEG) Urine RBC Occ /HPF (0-2) Urine WBC 1-4 /HPF (0-4) Urine Squamous Epithelial Cells Occ /LPF Urine Bacteria 0 /HPF (0-FEW) Urine Mucus Slight /LPF I have reviewed the following KUB with distended bowel loops, possibly some air in right colon Problem List s/p lap appendectomy decompress NGT today and then clamp again will start sesame seed oil if not improved, will consider UGI with SBFT in a few days d/w pt and pt's mother Problems: DOTTIE BELL MD Aug 30, 2016 13:46
[2016-08-30 15:00] VITALS: BP 112/64
[2016-08-30 19:00] VITALS: BP 114/73
[2016-08-30] MEDS: KETOROLAC TROMETHAMINE 30 MG/ML INJ. IV PRN (22:40)
[2016-08-30] MEDS: HYDROmorphone 2 MG/ML VIAL IVP PRN (22:41)
[2016-08-30 23:00] VITALS: BP 96/63
[2016-08-31 03:00] VITALS: BP 99/62
[2016-08-31] MEDS: HYDROmorphone 2 MG/ML VIAL IVP PRN ×3 (03:11→12:14)
[2016-08-31] MEDS: PIPERACILLIN/TAZOBACTAM 3.375 GM in IV NORMAL SALINE 50ML 50 ML IV SCH ×3 (05:45→18:38)
[2016-08-31 07:00] VITALS: BP 98/57
[2016-08-31] MEDS: FAMOTIDINE 20 MG/2 ML VIAL IVP SCH ×2 (08:22→21:18)
[2016-08-31] MEDS: DOCUSATE SODIUM 100 MG CAPSULE. PO SCH ×2 (09:00→21:00)
--- NOTE | 2016-08-31 10:28 | PDOC ---
SURGICAL PROGRESS NOTE Subjective large amount of stool last night no n/v, cramping pain improved had 3 doses of sesame seed oil Vital Signs Vital Signs Date Time Temp Pulse Resp B/P (MAP) Pulse Ox O2 Delivery O2 Flow Rate FiO2 08/31/16 07:24 97 Room Air 08/31/16 07:00 97.7 64 20 98/57 (71) 97.7 08/30/16 13:06 95.0 I&O Intake and Output 08/31/16 06:59 Intake Total 350 ml Output Total 500 ml Balance -150 ml Intake Oral 200 ml Tube Feeding 150 ml Stool Total 500 ml # Voids 3 # Bowel Movements 1 General: Alert, Oriented X3, Cooperative, No acute distress Abdomen: Soft, Other (mild distention, nontender) Labs Laboratory Tests Test 08/29/16 16:00 Urine Collection Type Unknown Urine Color Dk yellow Urine Clarity Clear Urine pH 6.5 Urine Specific [place] >=1.030 Urine Protein Negative mg/dL (NEG-TRACE) Urine Glucose (UA) Negative mg/dL (NEG) Urine Ketones (Stick) 15 mg/dL (NEG) Urine Blood Negative (NEG) Urine Nitrite Negative (NEG) Urine Bilirubin Negative (NEG) Urine Urobilinogen Dipstick 0.2 mg/dL (0.2 mg/dL) Urine Leukocyte Esterase Trace (NEG) Urine RBC Occ /HPF (0-2) Urine WBC 1-4 /HPF (0-4) Urine Squamous Epithelial Cells Occ /LPF Urine Bacteria 0 /HPF (0-FEW) Urine Mucus Slight /LPF Assessment/Plan will leave NG clamped check KUB in AM Problems: JANETTE LUIS APRN Aug 31, 2016 10:28
[2016-08-31 11:00] VITALS: BP 104/66
[2016-08-31] MEDS: KETOROLAC TROMETHAMINE 30 MG/ML INJ. IV PRN ×2 (12:04→22:29)
[2016-08-31 15:00] VITALS: BP 95/64
[2016-08-31] MEDS: AMINO AC 3%/ELECTROLYTE/GLYCER 1,000 ML IV SCH (15:58)
[2016-08-31] MEDS: fentaNYL PF VIAL 100 MCG/2 ML VIAL IV PRN ×2 (16:04→20:34)
[2016-08-31 19:00] VITALS: BP 113/74
[2016-08-31] MEDS: diphenhydrAMINE 50 MG/ML VIAL IVP PRN (21:59)
[2016-08-31 23:00] VITALS: BP 117/75
[2016-09-01] MEDS: HYDROmorphone 2 MG/ML VIAL IVP PRN ×4 (00:12→17:15)
[2016-09-01] MEDS: PIPERACILLIN/TAZOBACTAM 3.375 GM in IV NORMAL SALINE 50ML 50 ML IV SCH ×5 (00:15→23:21)
[2016-09-01 03:00] VITALS: BP 106/63
[2016-09-01] MEDS: fentaNYL PF VIAL 100 MCG/2 ML VIAL IV PRN ×4 (06:01→23:17)
[2016-09-01 07:00] VITALS: BP 96/55
[2016-09-01] MEDS: FAMOTIDINE 20 MG/2 ML VIAL IVP SCH ×2 (08:01→21:02)
[2016-09-01] MEDS: DOCUSATE SODIUM 100 MG CAPSULE. PO SCH ×2 (09:00→21:00)
--- NOTE | 2016-09-01 09:20 | RAD ---
NICOLE, 09/01/2016: History: Ileus versus small bowel obstruction Comparison is made to a study from 08/30/2016. An NG tube remains in place extending into the proximal aspect of the stomach. A sidehole lies new the level of the GE junction. There is moderate gaseous distention of multiple small bowel loops. This has worsened since the previous study. There are small gas collections in the right flank region suggesting a small amount of gas in nondistended ascending colon and/or distal small bowel loops. The majority of the colon does not contain significant gas. IMPRESSION: Worsening distal small bowel obstruction.
[2016-09-01] MEDS: AMINO AC 3%/ELECTROLYTE/GLYCER 1,000 ML IV SCH ×2 (09:53→19:37)
[2016-09-01 10:26] VITALS: BP 117/72
--- NOTE | 2016-09-01 10:30 | PDOC ---
SURGICAL PROGRESS NOTE Subjective no change, still not feeling great having some small stools, no significant flatus feels more bloated after walking Vital Signs Vital Signs Date Time Temp Pulse Resp B/P (MAP) Pulse Ox O2 Delivery O2 Flow Rate FiO2 09/01/16 10:02 97 Room Air 09/01/16 07:00 97.5 63 18 96/55 (69) 97.5 08/31/16 16:40 95.0 I&O Intake and Output 09/01/16 07:00 Intake Total 1860 ml Output Total 0 ml Balance 1860 ml Intake Oral 1100 ml IV Total 760 ml Gastric Drainage Total 0 ml # Voids 2 # Bowel Movements 2 General: Alert, Oriented X3, Cooperative, No acute distress Abdomen: Soft, Other (distended, nontender) Assessment/Plan s/p appy kub worsening distention NG without much output will check SBFT with gg today Problems: JANETTE LUIS MEDICAL LANGUAGE SPECIALIST Sep 01, 2016 10:30
[2016-09-01] MEDS ORDERED: IOHEXOL 350 MG/ML 100 ML VIAL. PO ONE (10:45)
[2016-09-01] MEDS ORDERED: CONTRAST GIVEN MC PRN (11:00)
[2016-09-01] MEDS: PROCHLORPERAZINE 10 MG/2 ML VIAL. IV PRN (13:04)
[2016-09-01 14:59] VITALS: BP 112/78
--- NOTE | 2016-09-01 16:00 | RAD ---
Small bowel series 09/01/2016 at 1120 hours Indication: History of recent ruptured appendicitis. Comparison: Abdominal radiograph from 09/01/2016 at 0813 hours Technique: After the ingestion of barium contrast, sequential abdominal imaging was performed at 0 minutes, 20 minutes, 40 minutes, 60 minutes and 120 minutes. Findings: There are multiple dilated loops of small bowel measuring up to 7 cm. This finding is similar to the recent prior examination from same date. Surgical clips are identified in the right lower quadrant. There is delayed transit of oral contrast through dilated loops of small bowel, predominantly the jejunum. Jejunal folds are normal. No filling defects are identified. No suspicious masses are noted in contrast opacified bowel. Due to patient discomfort and episode of emesis, examination was prematurely discontinued. Patient was placed in suction to resolve abdominal discomfort. This was communicated with the nurse practitioner for Dr. Jenkins at the time of the procedure. It was decided that the procedure would be discontinued and the patient will be followed radiographically at 4-8 hour intervals. Impression: Delayed transit of contrast material through dilated small bowel loops. Findings are most suggestive of a small bowel obstruction. Findings were discussed with ZITA Sosa at the time of the procedure by Dr. Varner.
[2016-09-01 19:00] VITALS: BP 103/68
[2016-09-01] MEDS: KETOROLAC TROMETHAMINE 30 MG/ML INJ. IV PRN (19:32)
[2016-09-01 23:00] VITALS: BP 101/64
[2016-09-02] MEDS: KETOROLAC TROMETHAMINE 30 MG/ML INJ. IV PRN (01:45)
[2016-09-02] MEDS: diphenhydrAMINE 50 MG/ML VIAL IVP PRN (01:50)
[2016-09-02 03:11] VITALS: BP 92/62
[2016-09-02] MEDS: PIPERACILLIN/TAZOBACTAM 3.375 GM in IV NORMAL SALINE 50ML 50 ML IV SCH ×3 (05:54→18:34)
[2016-09-02] MEDS: fentaNYL PF VIAL 100 MCG/2 ML VIAL IV PRN ×2 (06:16→09:07)
[2016-09-02 07:00] VITALS: BP 122/76
[2016-09-02] MEDS: DOCUSATE SODIUM 100 MG CAPSULE. PO SCH ×2 (09:00→21:00)
[2016-09-02] MEDS: AMINO AC 3%/ELECTROLYTE/GLYCER 1,000 ML IV SCH (09:07)
[2016-09-02] MEDS: ONDANSETRON PF 4 MG/2 ML VIAL. IV PRN (10:40)
[2016-09-02] MEDS: FAMOTIDINE 20 MG/2 ML VIAL IVP SCH ×2 (10:40→21:17)
[2016-09-02] MEDS: HYDROmorphone 2 MG/ML VIAL IVP PRN ×4 (10:41→22:14)
[2016-09-02 11:00] VITALS: BP 113/69
[2016-09-02 15:00] VITALS: BP 100/62
--- NOTE | 2016-09-02 16:33 | PDOC ---
Provider Note Provider Note not feeling better. still with diffuse pain, bloating, not passing much flatus afeb vss abd soft mild tender, moderately distended a/p sbo post lap appy. no sig improvement with ng and npo. plan for exploration on sunday. d/w pt and answered questions. he understands the risk of recurrent post op sbo. ALEJANDRA TATE MD Sep 02, 2016 16:33
[2016-09-02 19:00] VITALS: BP 112/75
[2016-09-02 22:33] VITALS: BP 100/60
[2016-09-03] MEDS: PIPERACILLIN/TAZOBACTAM 3.375 GM in IV NORMAL SALINE 50ML 50 ML IV SCH ×4 (00:03→17:30)
[2016-09-03] MEDS: AMINO AC 3%/ELECTROLYTE/GLYCER 1,000 ML IV SCH ×3 (04:43→21:59)
[2016-09-03] MEDS: HYDROmorphone 2 MG/ML VIAL IVP PRN ×5 (04:55→21:59)
[2016-09-03 07:00] VITALS: BP 110/71
[2016-09-03] MEDS: FAMOTIDINE 20 MG/2 ML VIAL IVP SCH ×2 (08:10→21:53)
[2016-09-03] MEDS: HYDROmorphone 2 MG/ML VIAL IV PRN (08:11)
[2016-09-03] MEDS: ONDANSETRON PF 4 MG/2 ML VIAL. IV PRN (08:11)
[2016-09-03] MEDS: DOCUSATE SODIUM 100 MG CAPSULE. PO SCH ×2 (09:00→21:00)
[2016-09-03 11:00] VITALS: BP 98/64
[2016-09-03 15:00] VITALS: BP 103/60
--- NOTE | 2016-09-03 16:47 | PDOC ---
Provider Note Provider Note +flatus but still with bloating and crampy abd pain afeb vss was ambulating in halls. no distress. abd soft distended a/p sbo, post op. plan for lap exploration, poss open tomorrow per ALEJANDRA Degroot MD Sep 03, 2016 16:47
[2016-09-03 19:00] VITALS: BP 103/64
[2016-09-03 23:00] VITALS: BP 98/68
[2016-09-04] VITALS (14 sets, daily range): BP systolic 105–122; BP diastolic 64–83
[2016-09-04] MEDS: PIPERACILLIN/TAZOBACTAM 3.375 GM in IV NORMAL SALINE 50ML 50 ML IV SCH ×4 (00:39→17:55)
[2016-09-04] MEDS: HYDROmorphone 2 MG/ML VIAL IVP PRN ×3 (03:22→18:36)
[2016-09-04] MEDS ORDERED: LIDOCAINE 1% 1 ML SYRINGE. ID PRN (07:00)
[2016-09-04] MEDS ORDERED: MORPHINE SULFATE 2 MG/ML DISP.SYRIN. IV PRN (07:00)
[2016-09-04] MEDS ORDERED: fentaNYL PF VIAL 100 MCG/2 ML VIAL IV PRN (07:00)
[2016-09-04] MEDS ORDERED: ONDANSETRON PF 4 MG/2 ML VIAL. IV PRN (07:00)
[2016-09-04] MEDS: FAMOTIDINE 20 MG/2 ML VIAL IVP SCH ×2 (08:16→21:49)
[2016-09-04] MEDS: HYDROmorphone 2 MG/ML VIAL IV PRN ×8 (08:17→14:36)
[2016-09-04] MEDS: DOCUSATE SODIUM 100 MG CAPSULE. PO SCH ×2 (08:17→21:49)
[2016-09-04] MEDS ORDERED: PROPOFOL 20 ML IV ONE (09:47)
[2016-09-04] MEDS ORDERED: ONDANSETRON PF 4 MG/2 ML VIAL. ONE (09:47)
[2016-09-04] MEDS ORDERED: ROCURONIUM 50 MG/5 ML VIAL. ONE ×2 (09:47→11:34)
[2016-09-04] MEDS ORDERED: DEXAMETHASONE SOD PHOS 20 MG/5 ML VIAL. ONE (09:47)
[2016-09-04] MEDS ORDERED: DESFLURANE > 120 MINUTES IH ONE (09:47)
[2016-09-04] MEDS ORDERED: LIDOCAINE 2% PF Vial for OR 5 ML VIAL. ONE ×2 (09:47→12:44)
[2016-09-04] MEDS ORDERED: MIDAZOLAM HCL/PF 2 MG/2 ML VIAL. ONE (09:47)
[2016-09-04] MEDS ORDERED: fentaNYL PF VIAL 250 MCG/5 ML VIAL ONE ×2 (09:47→12:00)
[2016-09-04] MEDS: IV RINGERS,LACTATED 1000ML 1,000 ML IV SCH ×3 (10:00→18:09)
[2016-09-04] MEDS: fentaNYL PF VIAL 100 MCG/2 ML VIAL IV PRN ×5 (10:25→18:02)
--- NOTE | 2016-09-04 10:39 | PDOC ---
SURGICAL PROGRESS NOTE Subjective Pre-Op Note 31 yo M s/p lap appendectomy for perforated appendicitis Now with SBO, not responding to conservative measures TO OR for lap vs open exploration, lysis of adhesions R/B/A d/w pt and pt's family Vital Signs Vital Signs Date Time Temp Pulse Resp B/P (MAP) Pulse Ox O2 Delivery O2 Flow Rate FiO2 09/04/16 10:25 13 93 Room Air 95.0 09/04/16 10:16 97.9 73 111/71 97.9 I&O Intake and Output 09/04/16 07:00 Intake Total 2020 ml Output Total 1300 ml Balance 720 ml Intake Oral 0 ml IV Total 960 ml Other 1060 ml Gastric Drainage Total 1300 ml # Voids 4 DOTTIE BELL MD Sep 04, 2016 10:39
[2016-09-04] MEDS ORDERED: BUPIVACAINE-EPI 0.5%-1:200000 50 ML VIAL. ONE (10:59)
[2016-09-04] MEDS ORDERED: ESMOLOL 100 MG/10 ML VIAL. IV ONE (11:11)
[2016-09-04] MEDS ORDERED: GLYCOPYRROLATE 1 MG/5 ML VIAL. ONE (12:04)
[2016-09-04] MEDS ORDERED: NEOSTIGMINE METHYLSULFATE 5 MG/5 ML SYRINGE. ONE (12:04)
[2016-09-04] MEDS: KETOROLAC TROMETHAMINE 30 MG/ML INJ. IV PRN (13:22)
[2016-09-04] MEDS: PROCHLORPERAZINE 10 MG/2 ML VIAL. IV PRN ×2 (14:09→14:21)
[2016-09-04] MEDS ORDERED: MIDAZOLAM HCL/PF 2 MG/2 ML VIAL. IV PRN (14:30)
[2016-09-04] MEDS: AMINO AC 3%/ELECTROLYTE/GLYCER 1,000 ML IV SCH (16:35)
[2016-09-04] MEDS: IV NORMAL SALINE 1000ML BAG 1,000 ML IV SCH (18:09)
[2016-09-04] MEDS ORDERED: NALOXONE 0.4 MG/ML VIAL. IV PRN (18:15)
[2016-09-04] MEDS ORDERED: 0.9 % SODIUM CHLORIDE 10 ML DISP.SYRIN. IV PRN (18:15)
--- NOTE | 2016-09-04 18:21 | PDOC ---
BRIEF OPERATIVE NOTE Date: Sep 04, 2016 Pre-Op Diagnosis Small bowel obstruction, perforated appendicitis Post-Op Diagnosis same Procedure Performed Lap converted to open exploration, lysis of adhesions Surgeon Laci Bell Anesthesia Type: General, Local Blood Loss 200 Specimens Obtained abdominal debris Findings Diffuse small bowel distention related to extensive scarring and debris Complications none OPerative Note After obtaining informed consent, patient was taken to the operating room and induced under GETA. Patient was prepped and draped in the usual fashion over the abdominal cavity. 0.5 % marcaine was injected into the left upper quadrant. An incision was made using a 15 blade scapel. 5 mm non bladed trocar was introduced under laparoscopic guidance. Pneumoperitoneum was thus established. Additional 5 port was placed. The abdominal cavity was explored. There was extensive adhesions and debris. Some debris sent for pathology. There was small bowel distention. The bowel was normal otherwise. An extensive laparoscopic adhesiolysis was performed. Eventually, an open procedure was felt more prudent. A midline incison was made. An extensive lysis of adhesion was performed. Ultimately, the small bowel was mobilized. A few serosal tears, inherent to the procedure, were reapproximated by 3 0 vicryl. The abdominal cavity was copiously irrigated. There was no evidence of bleeding or pathology. The small bowel was milked back to the NGT. The fascia was closed with 0 looped PDS. The skin incision was closed with 3 0 vicryl and 4 0 monocryl. Sterile dressing was applied. Patient tolerated procedure well. There was no immediate complications. Wound class was 4 given the perforated appendicitis. All counts were correct. LACI BELL MD Sep 04, 2016 18:21
[2016-09-05] MEDS: PIPERACILLIN/TAZOBACTAM 3.375 GM in IV NORMAL SALINE 50ML 50 ML IV SCH ×4 (00:23→19:33)
[2016-09-05] MEDS: AMINO AC 3%/ELECTROLYTE/GLYCER 1,000 ML IV SCH ×2 (00:33→12:40)
[2016-09-05 03:00] VITALS: BP 115/77
[2016-09-05 05:06] LABS: BASO # 0.1 x10^3/uL (0.0-0.2); BASO % 0 % (0-3); EOS % 0 % (0-3); HEMATOCRIT 44.9 % (39.0-53.0); HEMOGLOBIN 14.8 g/dL (13.0-17.5); LYMPH # 1.2 x10^3/uL (1.0-4.8); LYMPH % 7 % (24-48); MEAN CORPUSCULAR HEMOGLOBIN 30 pg (25-35); MEAN CORPUSCULAR HGB CONC 33 g/dL (31-37); MEAN CORPUSCULAR VOLUME 91 fL (79-100); MONO % 10 % (0-9); NEUT % 82 % (31-73); PLATELET COUNT 453 x10^3/uL (140-400); RED BLOOD COUNT 4.96 x10^6/uL (4.30-5.70); RED CELL DISTRIBUTION WIDTH 14.4 % (11.5-14.5); WHITE BLOOD COUNT 16.2 x10^3/uL (4.0-11.0)
[2016-09-05] MEDS: IV RINGERS,LACTATED 1000ML 1,000 ML IV SCH ×2 (05:29→14:09)
[2016-09-05 05:39] LABS: CALCIUM 8.3 mg/dL (8.5-10.1); CREATININE 0.9 mg/dL (0.7-1.3); GFR 97.2; POTASSIUM 4.7 mmol/L (3.5-5.1)
[2016-09-05 07:15] VITALS: BP 115/75
--- NOTE | 2016-09-05 08:55 | RAD ---
INDICATION: s/p xlap COMPARISON: September 01 2016 IMPRESSION: 2 views of abdomen obtained. There is a nasogastric tube with tip likely just distal to the gastroesophageal junction. There is contrast seen predominantly within the colon. There are some air-filled dilated loops of bowel within the abdomen measuring up to about 5 cm in diameter. Could be from causes such as ileus.
[2016-09-05] MEDS: DOCUSATE SODIUM 100 MG CAPSULE. PO SCH ×2 (09:00→21:00)
[2016-09-05 09:14] LABS: PLT ESTIMATE ADEQUATE (ADEQUATE)
[2016-09-05 10:49] VITALS: BP 114/77
[2016-09-05] MEDS: ENOXAPARIN 40 MG/0.4 ML SYRINGE. SQ SCH (12:41)
--- NOTE | 2016-09-05 14:37 | PDOC ---
SURGICAL PROGRESS NOTE Subjective Pt reports dilaudid gets him high, but doesn't address pain Vital Signs Vital Signs Date Time Temp Pulse Resp B/P (MAP) Pulse Ox O2 Delivery O2 Flow Rate FiO2 09/05/16 14:30 18 95 Room Air 09/05/16 10:49 97.9 84 114/77 (89) 3.0 97.9 I&O Intake and Output 09/05/16 07:00 Intake Total 2781.79 ml Output Total 1400 ml Balance 1381.79 ml Intake Oral 0 ml IV Total 2781.79 ml Output Urine Total 450 ml Gastric Drainage Total 750 ml Estimated Blood Loss 200 ml # Voids 2 General: Alert, Oriented X3, Cooperative, No acute distress Abdomen: Soft, No tenderness, Other (mildly distended) Labs Laboratory Tests Test 09/05/16 03:30 09/05/16 03:35 White Blood Count 16.2 x10^3/uL (4.0-11.0) Red Blood Count 4.96 x10^6/uL (4.30-5.70) Hemoglobin 14.8 g/dL (13.0-17.5) Hematocrit 44.9 % (39.0-53.0) Mean Corpuscular Volume 91 fL (79-100) Mean Corpuscular Hemoglobin 30 pg (25-35) Mean Corpuscular Hemoglobin Concent 33 g/dL (31-37) Red Cell Distribution Width 14.4 % (11.5-14.5) Platelet Count 453 x10^3/uL (140-400) Neutrophils (%) (Auto) 82 % (31-73) Lymphocytes (%) (Auto) 7 % (24-48) Monocytes (%) (Auto) 10 % (0-9) Eosinophils (%) (Auto) 0 % (0-3) Basophils (%) (Auto) 0 % (0-3) Neutrophils # (Auto) 13.2 x10^3uL (1.8-7.7) Lymphocytes # (Auto) 1.2 x10^3/uL (1.0-4.8) Monocytes # (Auto) 1.7 x10^3/uL (0.0-1.1) Eosinophils # (Auto) 0.0 x10^3/uL (0.0-0.7) Basophils # (Auto) 0.1 x10^3/uL (0.0-0.2) Segmented Neutrophils % 77 % (35-66) Band Neutrophils % 5 % (0-9) Lymphocytes % 10 % (24-48) Monocytes % 8 % (0-10) Platelet Estimate Adequate (ADEQUATE) Sodium Level 138 mmol/L (136-145) Potassium Level 4.7 mmol/L (3.5-5.1) Chloride Level 100 mmol/L (98-107) Carbon Dioxide Level 26 mmol/L (21-32) Anion Gap 12 (6-14) Blood Urea Nitrogen 20 mg/dL (8-26) Creatinine 0.9 mg/dL (0.7-1.3) Estimated GFR (Cockcroft-Gault) 97.2 Glucose Level 103 mg/dL (70-99) Calcium Level 8.3 mg/dL (8.5-10.1) Laboratory Tests Test 09/05/16 03:30 09/05/16 03:35 White Blood Count 16.2 x10^3/uL (4.0-11.0) Red Blood Count 4.96 x10^6/uL (4.30-5.70) Hemoglobin 14.8 g/dL (13.0-17.5) Hematocrit 44.9 % (39.0-53.0) Mean Corpuscular Volume 91 fL (79-100) Mean Corpuscular Hemoglobin 30 pg (25-35) Mean Corpuscular Hemoglobin Concent 33 g/dL (31-37) Red Cell Distribution Width 14.4 % (11.5-14.5) Platelet Count 453 x10^3/uL (140-400) Neutrophils (%) (Auto) 82 % (31-73) Lymphocytes (%) (Auto) 7 % (24-48) Monocytes (%) (Auto) 10 % (0-9) Eosinophils (%) (Auto) 0 % (0-3) Basophils (%) (Auto) 0 % (0-3) Neutrophils # (Auto) 13.2 x10^3uL (1.8-7.7) Lymphocytes # (Auto) 1.2 x10^3/uL (1.0-4.8) Monocytes # (Auto) 1.7 x10^3/uL (0.0-1.1) Eosinophils # (Auto) 0.0 x10^3/uL (0.0-0.7) Basophils # (Auto) 0.1 x10^3/uL (0.0-0.2) Segmented Neutrophils % 77 % (35-66) Band Neutrophils % 5 % (0-9) Lymphocytes % 10 % (24-48) Monocytes % 8 % (0-10) Platelet Estimate Adequate (ADEQUATE) Sodium Level 138 mmol/L (136-145) Potassium Level 4.7 mmol/L (3.5-5.1) Chloride Level 100 mmol/L (98-107) Carbon Dioxide Level 26 mmol/L (21-32) Anion Gap 12 (6-14) Blood Urea Nitrogen 20 mg/dL (8-26) Creatinine 0.9 mg/dL (0.7-1.3) Estimated GFR (Cockcroft-Gault) 97.2 Glucose Level 103 mg/dL (70-99) Calcium Level 8.3 mg/dL (8.5-10.1) Problem List s/p xlap will add tylenol await bowel fxn d/w pt and pt's mother Problems: DOTTIE BELL MD Sep 05, 2016 14:37
--- NOTE | 2016-09-05 16:26 | RAD ---
INDICATION: PICC line placement COMPARISON: 09/01/2016 abdomen plain film FINDINGS: Single view of chest obtained. Left-sided PICC line with tip near atriocaval junction. Enteric tube seen coursing below diaphragm with tip in left upper quadrant. Hypoexpanded examination lungs. Small focal opacity left lung base. Air filled distended loops of bowel in the partially visualized upper abdomen IMPRESSION: PICC line with tip near atriocaval junction. Small focal opacity left lung base. Could be a focus of atelectasis but attention on follow-up to ensure that there is not a developing infiltrate. Air filled distended loops of bowel are seen in the partially visualized upper abdomen.
[2016-09-05] MEDS: IV NORMAL SALINE 1000ML BAG 1,000 ML IV SCH (18:09)
[2016-09-05 19:00] VITALS: BP 108/79
[2016-09-05] MEDS: FAMOTIDINE 20 MG/2 ML VIAL IVP SCH ×2 (19:33→22:15)
[2016-09-05] MEDS ORDERED: TOTAL PARENTERAL NUTRITION 0 ML, AMINO ACID 15% 60 GM, DEXTROSE 70 % IN WATER 195 GM, F... IV SCH ×10 (22:00)
[2016-09-05] MEDS ORDERED: TOTAL PARENTERAL NUTRITION 0 ML, AMINO ACIDS 10 % 60 GM, DEXTROSE 70 % IN WATER 195 GM,... IV SCH ×10 (22:00)
[2016-09-05 23:00] VITALS: BP 112/68
[2016-09-06] MEDS: IV RINGERS,LACTATED 1000ML 1,000 ML IV SCH (00:09)
[2016-09-06] MEDS: PIPERACILLIN/TAZOBACTAM 3.375 GM in IV NORMAL SALINE 50ML 50 ML IV SCH ×5 (00:37→23:59)
[2016-09-06] MEDS ORDERED: NALOXONE 0.4 MG/ML VIAL. IV PRN (01:00)
[2016-09-06] MEDS: IV NORMAL SALINE 1000ML BAG 1,000 ML IV SCH (01:00)
[2016-09-06] MEDS: ACETAMINOPHEN 325 MG TABLET. PO PRN (01:55)
[2016-09-06 03:00] VITALS: BP 104/69
[2016-09-06 07:00] VITALS: BP 127/83
[2016-09-06] MEDS: DOCUSATE SODIUM 100 MG CAPSULE. PO SCH ×2 (09:00→21:00)
[2016-09-06] MEDS: AMINO AC 3%/ELECTROLYTE/GLYCER 1,000 ML IV SCH ×2 (10:35)
[2016-09-06] MEDS: FAMOTIDINE 20 MG/2 ML VIAL IVP SCH ×2 (10:36→22:51)
--- NOTE | 2016-09-06 10:45 | PDOC ---
SURGICAL PROGRESS NOTE Subjective Pt feels better today, slept well, minimal NGT aspirate Vital Signs Vital Signs Date Time Temp Pulse Resp B/P (MAP) Pulse Ox O2 Delivery O2 Flow Rate FiO2 09/06/16 10:29 92 Room Air 09/06/16 07:00 97.9 90 18 127/83 (98) 3.0 97.9 I&O Intake and Output 09/06/16 07:00 Intake Total 831 ml Output Total 1325 ml Balance -494 ml Intake Oral 0 ml IV Total 14 ml Other 817 ml Output Urine Total 950 ml Gastric Drainage Total 375 ml General: Alert, Oriented X3, Cooperative, No acute distress Abdomen: Soft, No tenderness, Other (some distention) Labs Laboratory Tests Test 09/05/16 03:30 09/05/16 03:35 White Blood Count 16.2 x10^3/uL (4.0-11.0) Red Blood Count 4.96 x10^6/uL (4.30-5.70) Hemoglobin 14.8 g/dL (13.0-17.5) Hematocrit 44.9 % (39.0-53.0) Mean Corpuscular Volume 91 fL (79-100) Mean Corpuscular Hemoglobin 30 pg (25-35) Mean Corpuscular Hemoglobin Concent 33 g/dL (31-37) Red Cell Distribution Width 14.4 % (11.5-14.5) Platelet Count 453 x10^3/uL (140-400) Neutrophils (%) (Auto) 82 % (31-73) Lymphocytes (%) (Auto) 7 % (24-48) Monocytes (%) (Auto) 10 % (0-9) Eosinophils (%) (Auto) 0 % (0-3) Basophils (%) (Auto) 0 % (0-3) Neutrophils # (Auto) 13.2 x10^3uL (1.8-7.7) Lymphocytes # (Auto) 1.2 x10^3/uL (1.0-4.8) Monocytes # (Auto) 1.7 x10^3/uL (0.0-1.1) Eosinophils # (Auto) 0.0 x10^3/uL (0.0-0.7) Basophils # (Auto) 0.1 x10^3/uL (0.0-0.2) Segmented Neutrophils % 77 % (35-66) Band Neutrophils % 5 % (0-9) Lymphocytes % 10 % (24-48) Monocytes % 8 % (0-10) Platelet Estimate Adequate (ADEQUATE) Sodium Level 138 mmol/L (136-145) Potassium Level 4.7 mmol/L (3.5-5.1) Chloride Level 100 mmol/L (98-107) Carbon Dioxide Level 26 mmol/L (21-32) Anion Gap 12 (6-14) Blood Urea Nitrogen 20 mg/dL (8-26) Creatinine 0.9 mg/dL (0.7-1.3) Estimated GFR (Cockcroft-Gault) 97.2 Glucose Level 103 mg/dL (70-99) Calcium Level 8.3 mg/dL (8.5-10.1) Problem List s/p xlap clear, clamp NGT Problems: DOTTIE BELL MD Sep 06, 2016 10:45
[2016-09-06] MEDS: ENOXAPARIN 40 MG/0.4 ML SYRINGE. SQ SCH (10:46)
[2016-09-06 11:00] VITALS: BP 114/79
[2016-09-06 12:22] LABS: CALCIUM 8.4 mg/dL (8.5-10.1); CREATININE 0.7 mg/dL (0.7-1.3); GFR 129.9; MAGNESIUM 2.3 mg/dL (1.8-2.4); PHOSPHORUS 3.3 mg/dL (2.6-4.7)
[2016-09-06 12:23] LABS: POTASSIUM 5.5 mmol/L (3.5-5.1)
[2016-09-06] MEDS: TPN PER PHARMACY MC PRN (12:46)
[2016-09-06 14:43] VITALS: BP 12/82
[2016-09-06] MEDS: PROCHLORPERAZINE 10 MG/2 ML VIAL. IV PRN (16:08)
--- NOTE | 2016-09-06 16:31 | PATHOLOGY ---
PATHOLOGY REPORT * * * * * * * * FINAL DIAGNOSIS: Abdominal tissue: - Acute necroinflammatory exudate. (JPM:; 09/06/2016) REPORT ELECTRONICALLY SIGNED BY: Elier Ayala M.D. DATE/TIME: 09/06/2016 16:30 * * * * * * * * GROSS PATHOLOGY: The specimen is received in formalin, labeled "Aries Conner, abdominal tissue". Received are multiple sheetlike segments of flexible, pale tangray soft tissue ranging in size from 1.2 cm to 3.8 cm. No solid masses or nodules are identified. Medical Artist sections are submitted in cassette A1. (SNA; 09/05/2016) INITIAL CPT CODE(S): A; 61678 Professional services performed by [facility] [place] [address] Technical services performed by [facility] at [address] [place] [address] [address], [place] [address]. SPECIMEN(S) RECEIVED: A.Abdominal tissue CLINICAL HISTORY: Abdominal pain PATIENT: ARIES CONNER /AGE: 608/09/1985 (Age: 31) PATIENT #: [id number] ALT CASE #: SPECIMEN COLLECTION DATE: 09/04/2016 SPECIMEN RECEIVED DATE: 09/04/2016 [facility] - [address] [place] [address] - PHONE: [phone] * * * END OF REPORT * * *
[2016-09-06 19:00] VITALS: BP 121/93
[2016-09-06] MEDS: ONDANSETRON PF 4 MG/2 ML VIAL. IV PRN (21:41)
[2016-09-06] MEDS ORDERED: TOTAL PARENTERAL NUTRITION IV SCH ×9 (22:00)
[2016-09-06] MEDS ORDERED: DEXTROSE 70% IV SCH ×9 (22:00)
[2016-09-06] MEDS ORDERED: [UNRECOGNIZED DRUG - OTHER] IV SCH ×9 (22:00)
[2016-09-06] MEDS ORDERED: AMINO ACIDS IV SCH ×9 (22:00)
[2016-09-06 23:00] VITALS: BP 136/89
[2016-09-07] MEDS: IV NORMAL SALINE 1000ML BAG 1,000 ML IV SCH (01:00)
[2016-09-07 03:01] VITALS: BP 135/87
[2016-09-07] MEDS: PIPERACILLIN/TAZOBACTAM 3.375 GM in IV NORMAL SALINE 50ML 50 ML IV SCH ×3 (05:39→17:05)
[2016-09-07 06:07] LABS: CALCIUM 8.8 mg/dL (8.5-10.1); CREATININE 0.8 mg/dL (0.7-1.3); GFR 111.3; MAGNESIUM 2.1 mg/dL (1.8-2.4); PHOSPHORUS 3.4 mg/dL (2.6-4.7); POTASSIUM 3.8 mmol/L (3.5-5.1)
[2016-09-07 07:00] VITALS: BP 126/76
--- NOTE | 2016-09-07 08:59 | RAD ---
Indication assess nasogastric tube placement. A single view targeted to the lower chest and upper abdomen was obtained. There is moderate dilatation of the visualized bowel loops. Findings suggest ileus or a component of mechanical obstruction. There is some contrast seen in the large bowel similar to the previous exam. Nasogastric tube has its tip in the body of the stomach. There is no free air. The lung bases are clear. IMPRESSION: Nasogastric tube in the stomach
[2016-09-07] MEDS: DOCUSATE SODIUM 100 MG CAPSULE. PO SCH ×3 (09:00→20:47)
[2016-09-07] MEDS: ENOXAPARIN 40 MG/0.4 ML SYRINGE. SQ SCH (09:33)
[2016-09-07] MEDS: FAMOTIDINE 20 MG/2 ML VIAL IVP SCH ×2 (09:33→20:42)
[2016-09-07 11:00] VITALS: BP 124/87
--- NOTE | 2016-09-07 11:22 | PDOC ---
SURGICAL PROGRESS NOTE Subjective Pt feels better, has been walking Vital Signs Vital Signs Date Time Temp Pulse Resp B/P (MAP) Pulse Ox O2 Delivery O2 Flow Rate FiO2 09/07/16 11:00 96.8 86 18 124/87 (99) 93 Nasal Cannula 3.0 96.8 I&O Intake and Output 09/07/16 07:00 Intake Total 702 ml Output Total 1800 ml Balance -1098 ml Intake Oral 0 ml Other 702 ml Output Urine Total 350 ml Gastric Drainage Total 800 ml Emesis 650 ml # Voids 2 General: Alert, Oriented X3, Cooperative, No acute distress Abdomen: Soft, No tenderness, Other (some distention) Labs Laboratory Tests Test 09/06/16 12:00 09/07/16 05:30 Sodium Level 128 mmol/L (136-145) 138 mmol/L (136-145) Potassium Level 5.5 mmol/L (3.5-5.1) 3.8 mmol/L (3.5-5.1) Chloride Level 93 mmol/L (98-107) 99 mmol/L (98-107) Carbon Dioxide Level 29 mmol/L (21-32) 29 mmol/L (21-32) Anion Gap 6 (6-14) 10 (6-14) Blood Urea Nitrogen 15 mg/dL (8-26) 15 mg/dL (8-26) Creatinine 0.7 mg/dL (0.7-1.3) 0.8 mg/dL (0.7-1.3) Estimated GFR (Cockcroft-Gault) 129.9 111.3 Glucose Level 117 mg/dL (70-99) 120 mg/dL (70-99) Calcium Level 8.4 mg/dL (8.5-10.1) 8.8 mg/dL (8.5-10.1) Phosphorus Level 3.3 mg/dL (2.6-4.7) 3.4 mg/dL (2.6-4.7) Magnesium Level 2.3 mg/dL (1.8-2.4) 2.1 mg/dL (1.8-2.4) Laboratory Tests Test 09/06/16 12:00 09/07/16 05:30 Sodium Level 128 mmol/L (136-145) 138 mmol/L (136-145) Potassium Level 5.5 mmol/L (3.5-5.1) 3.8 mmol/L (3.5-5.1) Chloride Level 93 mmol/L (98-107) 99 mmol/L (98-107) Carbon Dioxide Level 29 mmol/L (21-32) 29 mmol/L (21-32) Anion Gap 6 (6-14) 10 (6-14) Blood Urea Nitrogen 15 mg/dL (8-26) 15 mg/dL (8-26) Creatinine 0.7 mg/dL (0.7-1.3) 0.8 mg/dL (0.7-1.3) Estimated GFR (Cockcroft-Gault) 129.9 111.3 Glucose Level 117 mg/dL (70-99) 120 mg/dL (70-99) Calcium Level 8.4 mg/dL (8.5-10.1) 8.8 mg/dL (8.5-10.1) Phosphorus Level 3.3 mg/dL (2.6-4.7) 3.4 mg/dL (2.6-4.7) Magnesium Level 2.3 mg/dL (1.8-2.4) 2.1 mg/dL (1.8-2.4) I have reviewed the following KUB with contrast in colon, bowel distention Assessment/Plan appears improved pt on TPN await bowel fxn d/w pt and pt's mother Problems: DOTTIE BELL MD Sep 07, 2016 11:22
[2016-09-07] MEDS: TPN PER PHARMACY MC PRN (12:52)
[2016-09-07 15:00] VITALS: BP 119/83
[2016-09-07 19:40] VITALS: BP 109/73
[2016-09-07] MEDS ORDERED: [UNRECOGNIZED DRUG - OTHER] IV SCH ×10 (22:00)
[2016-09-07] MEDS ORDERED: AMINO ACIDS IV SCH ×10 (22:00)
[2016-09-07] MEDS ORDERED: DEXTROSE 70% IV SCH ×10 (22:00)
[2016-09-07] MEDS ORDERED: TOTAL PARENTERAL NUTRITION IV SCH ×10 (22:00)
[2016-09-07 23:47] VITALS: BP 121/77
[2016-09-08] MEDS: PIPERACILLIN/TAZOBACTAM 3.375 GM in IV NORMAL SALINE 50ML 50 ML IV SCH ×5 (00:03→23:52)
[2016-09-08] MEDS: IV NORMAL SALINE 1000ML BAG 1,000 ML IV SCH (01:00)
[2016-09-08 03:40] VITALS: BP 115/82
[2016-09-08 06:28] LABS: CALCIUM 8.7 mg/dL (8.5-10.1); CREATININE 0.7 mg/dL (0.7-1.3); GFR 129.9; POTASSIUM 3.5 mmol/L (3.5-5.1)
[2016-09-08 07:41] VITALS: BP 126/87
--- NOTE | 2016-09-08 08:22 | PDOC ---
SURGICAL PROGRESS NOTE Subjective Pt reports feeling better today, passing flatus with relief of abd pressure Vital Signs Vital Signs Date Time Temp Pulse Resp B/P (MAP) Pulse Ox O2 Delivery O2 Flow Rate FiO2 09/08/16 07:41 97.7 74 18 126/87 (100) 96 Room Air 97.7 09/07/16 12:20 3.0 I&O Intake and Output 09/08/16 07:00 Output Total 150 ml Balance -150 ml Output Urine Total 150 ml # Voids 5 General: Alert, Oriented X3, Cooperative, No acute distress Abdomen: Soft, No tenderness, Other (distended) Labs Laboratory Tests Test 09/06/16 12:00 09/07/16 05:30 09/08/16 06:00 Sodium Level 128 mmol/L (136-145) 138 mmol/L (136-145) 139 mmol/L (136-145) Potassium Level 5.5 mmol/L (3.5-5.1) 3.8 mmol/L (3.5-5.1) 3.5 mmol/L (3.5-5.1) Chloride Level 93 mmol/L (98-107) 99 mmol/L (98-107) 102 mmol/L (98-107) Carbon Dioxide Level 29 mmol/L (21-32) 29 mmol/L (21-32) 29 mmol/L (21-32) Anion Gap 6 (6-14) 10 (6-14) 8 (6-14) Blood Urea Nitrogen 15 mg/dL (8-26) 15 mg/dL (8-26) 14 mg/dL (8-26) Creatinine 0.7 mg/dL (0.7-1.3) 0.8 mg/dL (0.7-1.3) 0.7 mg/dL (0.7-1.3) Estimated GFR (Cockcroft-Gault) 129.9 111.3 129.9 Glucose Level 117 mg/dL (70-99) 120 mg/dL (70-99) 111 mg/dL (70-99) Calcium Level 8.4 mg/dL (8.5-10.1) 8.8 mg/dL (8.5-10.1) 8.7 mg/dL (8.5-10.1) Phosphorus Level 3.3 mg/dL (2.6-4.7) 3.4 mg/dL (2.6-4.7) 4.0 mg/dL (2.6-4.7) Magnesium Level 2.3 mg/dL (1.8-2.4) 2.1 mg/dL (1.8-2.4) 2.0 mg/dL (1.8-2.4) Laboratory Tests Test 09/08/16 06:00 Sodium Level 139 mmol/L (136-145) Potassium Level 3.5 mmol/L (3.5-5.1) Chloride Level 102 mmol/L (98-107) Carbon Dioxide Level 29 mmol/L (21-32) Anion Gap 8 (6-14) Blood Urea Nitrogen 14 mg/dL (8-26) Creatinine 0.7 mg/dL (0.7-1.3) Estimated GFR (Cockcroft-Gault) 129.9 Glucose Level 111 mg/dL (70-99) Calcium Level 8.7 mg/dL (8.5-10.1) Phosphorus Level 4.0 mg/dL (2.6-4.7) Magnesium Level 2.0 mg/dL (1.8-2.4) Assessment/Plan s/p xlap clamp NGT encouraged OOB Problems: DOTTIE BELL MD Sep 08, 2016 08:22
[2016-09-08] MEDS: DOCUSATE SODIUM 100 MG CAPSULE. PO SCH ×2 (08:44→21:00)
[2016-09-08] MEDS: FAMOTIDINE 20 MG/2 ML VIAL IVP SCH ×2 (08:46→21:20)
[2016-09-08] MEDS: ENOXAPARIN 40 MG/0.4 ML SYRINGE. SQ SCH (08:47)
[2016-09-08 10:55] VITALS: BP 116/80
[2016-09-08] MEDS: TPN PER PHARMACY MC PRN (12:48)
[2016-09-08 14:30] VITALS: BP 107/65
[2016-09-08 19:00] VITALS: BP 112/75
[2016-09-08] MEDS ORDERED: AMINO ACIDS IV SCH ×10 (22:00)
[2016-09-08] MEDS ORDERED: [UNRECOGNIZED DRUG - OTHER] IV SCH ×10 (22:00)
[2016-09-08] MEDS ORDERED: DEXTROSE 70% IV SCH ×10 (22:00)
[2016-09-08] MEDS ORDERED: TOTAL PARENTERAL NUTRITION IV SCH ×10 (22:00)
[2016-09-08 23:00] VITALS: BP 104/69
[2016-09-09] MEDS: IV NORMAL SALINE 1000ML BAG 1,000 ML IV SCH (01:00)
[2016-09-09 03:00] VITALS: BP 112/73
[2016-09-09] MEDS: PIPERACILLIN/TAZOBACTAM 3.375 GM in IV NORMAL SALINE 50ML 50 ML IV SCH ×4 (06:18→22:51)
[2016-09-09 06:45] LABS: CALCIUM 7.8 mg/dL (8.5-10.1); CREATININE 0.7 mg/dL (0.7-1.3); GFR 129.9; POTASSIUM 3.8 mmol/L (3.5-5.1)
[2016-09-09 07:24] VITALS: BP 117/75
[2016-09-09] MEDS: FAMOTIDINE 20 MG/2 ML VIAL IVP SCH ×2 (09:00→20:31)
[2016-09-09] MEDS: DOCUSATE SODIUM 100 MG CAPSULE. PO SCH ×2 (09:00→20:31)
[2016-09-09] MEDS: ENOXAPARIN 40 MG/0.4 ML SYRINGE. SQ SCH (09:00)
--- NOTE | 2016-09-09 11:10 | PDOC ---
Provider Note Provider Note SURG POD 5 ex lap, FCO tolerating clear liquids with NG off suction doesn't feel STICK PULLER is effective does not appear to be in acute discomfort incision c/d, belly slightly distended, but soft will d/c NG, full liquids, d/c STICK PULLER, po pain med with prn IV for breakthrough d/w Ning and his mother at the bedside FRANK RODAS MD Sep 09, 2016 11:10
[2016-09-09 11:22] VITALS: BP 113/77
[2016-09-09] MEDS: oxyCODONE/APAP 7.5/325 1 TAB TABLET PO PRN ×3 (11:40→22:49)
[2016-09-09] MEDS: TPN PER PHARMACY MC PRN (12:43)
[2016-09-09] MEDS: HYDROmorphone 2 MG/ML VIAL IV PRN ×2 (13:42→20:32)
[2016-09-09 15:11] VITALS: BP 110/75
[2016-09-09 19:00] VITALS: BP 112/70
[2016-09-09] MEDS ORDERED: DEXTROSE 70% IV SCH ×10 (22:00)
[2016-09-09] MEDS ORDERED: AMINO ACIDS IV SCH ×10 (22:00)
[2016-09-09] MEDS ORDERED: [UNRECOGNIZED DRUG - OTHER] IV SCH ×10 (22:00)
[2016-09-09] MEDS ORDERED: TOTAL PARENTERAL NUTRITION IV SCH ×10 (22:00)
[2016-09-09 23:23] VITALS: BP 101/64
[2016-09-10] MEDS: IV NORMAL SALINE 1000ML BAG 1,000 ML IV SCH (01:00)
[2016-09-10 03:27] VITALS: BP 109/73
[2016-09-10] MEDS: oxyCODONE/APAP 7.5/325 1 TAB TABLET PO PRN ×3 (03:33→23:56)
[2016-09-10] MEDS: HYDROmorphone 2 MG/ML VIAL IV PRN ×4 (06:19→21:34)
[2016-09-10] MEDS: PIPERACILLIN/TAZOBACTAM 3.375 GM in IV NORMAL SALINE 50ML 50 ML IV SCH ×4 (06:19→23:48)
[2016-09-10 07:00] VITALS: BP 100/77
[2016-09-10] MEDS: DOCUSATE SODIUM 100 MG CAPSULE. PO SCH ×2 (08:54→21:30)
[2016-09-10] MEDS: ACETAMINOPHEN 325 MG TABLET. PO PRN (08:55)
[2016-09-10] MEDS: FAMOTIDINE 20 MG/2 ML VIAL IVP SCH ×2 (08:55→21:35)
[2016-09-10] MEDS: ENOXAPARIN 40 MG/0.4 ML SYRINGE. SQ SCH (08:56)
[2016-09-10] MEDS: HYDROcodone/APAP 5/325MG 1 TAB TABLET PO PRN (08:56)
[2016-09-10 11:00] VITALS: BP 119/86
[2016-09-10] MEDS: TPN PER PHARMACY MC PRN (11:31)
--- NOTE | 2016-09-10 11:52 | PDOC ---
Provider Note Provider Note SURG Yonatan Jenkins no new complaints taking full liquids no n/v belly soft, incision c/d stay on fulls today ambulate FRANK RODAS MD Sep 10, 2016 11:51
[2016-09-10 15:00] VITALS: BP 110/77
[2016-09-10 19:00] VITALS: BP 105/70
[2016-09-10] MEDS ORDERED: [UNRECOGNIZED DRUG - OTHER] IV SCH ×10 (22:00)
[2016-09-10] MEDS ORDERED: DEXTROSE 70% IV SCH ×10 (22:00)
[2016-09-10] MEDS ORDERED: AMINO ACIDS IV SCH ×10 (22:00)
[2016-09-10] MEDS ORDERED: TOTAL PARENTERAL NUTRITION IV SCH ×10 (22:00)
[2016-09-10 23:00] VITALS: BP 104/64
[2016-09-11] MEDS: IV NORMAL SALINE 1000ML BAG 1,000 ML IV SCH (01:00)
[2016-09-11] MEDS: HYDROmorphone 2 MG/ML VIAL IV PRN ×3 (03:40→20:41)
[2016-09-11 03:49] VITALS: BP 100/66
[2016-09-11 05:24] LABS: CALCIUM 8.2 mg/dL (8.5-10.1); CREATININE 0.7 mg/dL (0.7-1.3); GFR 129.9; POTASSIUM 4.4 mmol/L (3.5-5.1)
[2016-09-11 05:33] LABS: PHOSPHORUS 4.6 mg/dL (2.6-4.7)
[2016-09-11] MEDS: PIPERACILLIN/TAZOBACTAM 3.375 GM in IV NORMAL SALINE 50ML 50 ML IV SCH ×3 (06:46→18:35)
[2016-09-11 07:00] VITALS: BP 110/72
[2016-09-11] MEDS: ENOXAPARIN 40 MG/0.4 ML SYRINGE. SQ SCH (08:23)
[2016-09-11] MEDS: oxyCODONE/APAP 7.5/325 1 TAB TABLET PO PRN (08:23)
[2016-09-11] MEDS: DOCUSATE SODIUM 100 MG CAPSULE. PO SCH ×2 (08:23→20:40)
[2016-09-11] MEDS: FAMOTIDINE 20 MG/2 ML VIAL IVP SCH ×2 (08:23→20:41)
[2016-09-11 11:00] VITALS: BP 105/72
--- NOTE | 2016-09-11 12:27 | PDOC ---
SURGICAL PROGRESS NOTE Subjective Tolerating diet + bowel function continued pain, using IV meds still, feels percocet not improving pain Vital Signs Vital Signs Date Time Temp Pulse Resp B/P (MAP) Pulse Ox O2 Delivery O2 Flow Rate FiO2 09/11/16 11:00 98.8 81 20 105/72 (83) 96 Room Air 98.8 09/11/16 08:00 3.0 I&O Intake and Output 09/11/16 07:00 Intake Total 450 ml Output Total 2825 ml Balance -2375 ml Intake Oral 450 ml Output Urine Total 2825 ml General: Alert, Oriented X3, Cooperative, No acute distress Abdomen: Soft, Other (ND, incisional TTP, incision c/d/i, no erythema ) Labs Laboratory Tests Test 09/11/16 04:00 Sodium Level 135 mmol/L (136-145) Potassium Level 4.4 mmol/L (3.5-5.1) Chloride Level 100 mmol/L (98-107) Carbon Dioxide Level 27 mmol/L (21-32) Anion Gap 8 (6-14) Blood Urea Nitrogen 14 mg/dL (8-26) Creatinine 0.7 mg/dL (0.7-1.3) Estimated GFR (Cockcroft-Gault) 129.9 Glucose Level 91 mg/dL (70-99) Calcium Level 8.2 mg/dL (8.5-10.1) Phosphorus Level 4.6 mg/dL (2.6-4.7) Magnesium Level 2.0 mg/dL (1.8-2.4) Laboratory Tests Test 09/11/16 04:00 Sodium Level 135 mmol/L (136-145) Potassium Level 4.4 mmol/L (3.5-5.1) Chloride Level 100 mmol/L (98-107) Carbon Dioxide Level 27 mmol/L (21-32) Anion Gap 8 (6-14) Blood Urea Nitrogen 14 mg/dL (8-26) Creatinine 0.7 mg/dL (0.7-1.3) Estimated GFR (Cockcroft-Gault) 129.9 Glucose Level 91 mg/dL (70-99) Calcium Level 8.2 mg/dL (8.5-10.1) Phosphorus Level 4.6 mg/dL (2.6-4.7) Magnesium Level 2.0 mg/dL (1.8-2.4) Assessment/Plan s/p xlap advance to soft diet increase to percocet 10mg, if not managing pain, consider a pain consult to assist in getting patient off IV meds Problems: JANETTE LUIS VESSEL WELDER Sep 11, 2016 12:27
[2016-09-11] MEDS: oxyCODONE/APAP 10/325 1 TAB TABLET PO PRN ×2 (13:24→18:37)
[2016-09-11] MEDS: TPN PER PHARMACY MC PRN (14:24)
[2016-09-11 15:00] VITALS: BP 112/67
[2016-09-11 19:00] VITALS: BP_SYST 100; BP_SYST 98; BP_DIAS 48; BP_DIAS 67
[2016-09-11] MEDS ORDERED: AMINO ACIDS IV SCH ×10 (22:00)
[2016-09-11] MEDS ORDERED: TOTAL PARENTERAL NUTRITION IV SCH ×10 (22:00)
[2016-09-11] MEDS ORDERED: DEXTROSE 70% IV SCH ×10 (22:00)
[2016-09-11] MEDS ORDERED: [UNRECOGNIZED DRUG - OTHER] IV SCH ×10 (22:00)
[2016-09-11 23:00] VITALS: BP 96/60
[2016-09-12] MEDS: oxyCODONE/APAP 10/325 1 TAB TABLET PO PRN ×4 (00:03→14:26)
[2016-09-12] MEDS: PIPERACILLIN/TAZOBACTAM 3.375 GM in IV NORMAL SALINE 50ML 50 ML IV SCH ×3 (00:03→11:45)
[2016-09-12] MEDS: IV NORMAL SALINE 1000ML BAG 1,000 ML IV SCH (01:00)
[2016-09-12] MEDS: HYDROmorphone 2 MG/ML VIAL IV PRN (02:17)
[2016-09-12 03:00] VITALS: BP 89/54
[2016-09-12 07:00] VITALS: BP 92/57
[2016-09-12] MEDS: DOCUSATE SODIUM 100 MG CAPSULE. PO SCH (08:55)
[2016-09-12] MEDS: FAMOTIDINE 20 MG/2 ML VIAL IVP SCH (08:57)
[2016-09-12] MEDS: ENOXAPARIN 40 MG/0.4 ML SYRINGE. SQ SCH (09:53)
[2016-09-12 11:00] VITALS: BP 100/61
--- NOTE | 2016-09-12 11:47 | PDOC3 ---
Discharge Summary Visit Information Date of Admission: Aug 22, 2016 Date of Discharge: Sep 12, 2016 Admitting Diagnosis: Perforated appendicitis Brief Hospital Course Allergies Allergies Coded Allergies Type Severity Reaction Last Updated Verified No Known Drug Allergies 08/23/16 No Vital Signs Vital Signs Date Time Temp Pulse Resp B/P (MAP) Pulse Ox O2 Delivery O2 Flow Rate FiO2 09/12/16 11:00 97.5 83 18 100/61 (74) 97 Room Air 97.5 09/11/16 08:00 3.0 Lab Results Laboratory Tests Test 09/11/16 04:00 Sodium Level 135 mmol/L (136-145) Potassium Level 4.4 mmol/L (3.5-5.1) Chloride Level 100 mmol/L (98-107) Carbon Dioxide Level 27 mmol/L (21-32) Anion Gap 8 (6-14) Blood Urea Nitrogen 14 mg/dL (8-26) Creatinine 0.7 mg/dL (0.7-1.3) Estimated GFR (Cockcroft-Gault) 129.9 Glucose Level 91 mg/dL (70-99) Calcium Level 8.2 mg/dL (8.5-10.1) Phosphorus Level 4.6 mg/dL (2.6-4.7) Magnesium Level 2.0 mg/dL (1.8-2.4) Brief Hospital Course Mr. Adams is a 31 M with perforated appendicitis. He underwent laparoscopic appendectomy. He had a prolonged course secondary to extensive peritonitis and required a return to the OR for small bowel obstruction. The day of discharge, patient was doing well. He was tolerating diet. Having good bowel function and his pain was controlled with PO pain meds. Discharge Information Condition at Discharge: Improved Follow Up: Weeks (2) Disposition/Orders: D/C to Home Patient Instructions Patient Instructions Diet as tolerated. Activity: no heavy lifting Scripts: percocet, colace F/u with Alice in two weeks. DOTTIE BELL MD Sep 12, 2016 11:47
[2016-09-12] MEDS ORDERED: DOCU-109 PO (13:04)
[2016-09-12] MEDS ORDERED: OXYC-328 PO (13:04)
== END 2016-09-12 14:35 | disposition home or self-care (01) | DRG 853 ==
LOC: 4 NORTH 19:36
PROVIDERS: ADMIT Surgery; ATTEND Surgery
PROC: 0DTJ4ZZ Resection of Appendix, Percutaneous Endoscopic Approach (ICD-10-PCS; principal; 2016-08-23 11:15)
PROC: 0DNW0ZZ Release Peritoneum, Open Approach (ICD-10-PCS; 2016-09-04)
PROC: 0WJG4ZZ Inspection of Peritoneal Cavity, Percutaneous Endoscopic Approach (ICD-10-PCS; 2016-09-04)
DX: A41.9 Sepsis, unspecified organism (principal); K35.2 Acute appendicitis with generalized peritonitis; D62 Acute posthemorrhagic anemia; R18.8 Other ascites; K56.5 Intestinal adhesions [bands] with obstruction (postinfection); F17.210 Nicotine dependence, cigarettes, uncomplicated; Z53.31 Laparoscopic surgical procedure converted to open procedure
CPT/HCPCS: 36415; 71010; 74000; 74020; 74177; 74250; 80048; 80053; 81001; 83735; 84100; 85007; 85027; 87086; 88304; J0330; J0610; J0780; J1100; J1170; J1200; J1650; J1885; J2001; J2250; J2270; J2405; J2543; J2704; J2710; J2765; J3010; J3475; J3490; J7030; J7120; Q9967; S0028